=== PATIENT | female | born 1960 | race Caucasian/White ===

== ENCOUNTER 2021-03-11 20:40 | Inpatient (IN) ==
[2021-03-11] MEDS ORDERED: ONDANSETRON INJ 2 MG/ML 2 ML VIAL IV STA (20:59)
[2021-03-11] MEDS ORDERED: fentaNYL citrate 100 MCG/2 ML VIAL IV PRN (20:59)
[2021-03-11] MEDS ORDERED: SODIUM CHLORIDE 0.9% 1000ML 1,000 ML IV STA (20:59)
--- NOTE | 2021-03-11 21:10 | Emergency Department Note ---
Impression & Plan COVID-19 virus infection, Vomiting, Diarrhea, Hypomagnesemia, Hypocalcemia, Fever ED Provider Note NAME: SCOT BANDA AGE: 61 SEX: F : 1960 ARRIVES VIA: Ambulance INFORMANT: Patient, EMS personnel ED PROVIDER(S): Louie Da Silva DO CHIEF COMPLAINT: Vomiting HPI: The patient is a 61-year-old female who presented to the emergency department by ambulance for an evaluation of vomiting. The patient states that she has had ongoing symptoms over the course the last 3 days. She noticed no fever. She did notice a lot of heart palpitations. She called 911 this evening because she was having worsening symptoms and started having problems with pain in her hands. She presented to the emergency department with carpopedal spasm. The patient states that she has noticed abdominal distention nausea vomiting and diarrhea. The symptoms all began approximately 3 days ago. She states his symptoms are moderate to severe. She notices abdominal pain and abdominal distention. She also notices back pain and difficulty breathing. She is noticed her heart rate has been fast as well. She has been trying to take her outpatient medications without been able to keep them down. She has missed her blood pressure medicine over the last 48 hours. The patient states her symptoms are moderate to severe. She called 911 and arrived at the emergency department via ambulance. ROS: See above HPI for pertinent positives & negatives. A total of 10 systems reviewed and were otherwise negative. PAST MEDICAL HISTORY: See Below PAST SURGICAL HISTORY: See Below FAMILY HISTORY: See Below SOCIAL HISTORY: See Below HOME MEDICATIONS: See Below ALLERGIES: See Below VITALS: See Below PHYSICAL EXAMINATION: GENERAL: The patient is awake and alert. The patient is very anxious appearing. EYES: The conjunctivae are clear. The pupils are round and reactive. EARS, NOSE, MOUTH AND THROAT: The nose is without any evidence of any deformity. Mucous membranes are dry. NECK: The neck is nontender and supple. RESPIRATORY: Diminished breath sounds are noted throughout. Scattered rhonchi are noted throughout. CARDIOVASCULAR: Tachycardic and regular heart sounds were noted to auscultation. There is no definite murmur. GASTROINTESTINAL: The abdomen was soft and moderately distended. There is diffuse tenderness to palpation but no guarding rigidity. MUSCULOSKELETAL/EXTREMITIES: There is no evidence of gross deformity full range of motion is noted in the hips and shoulders. SKIN: Skin is warm and dry. Pedal edema was noted bilaterally. NEUROLOGIC: Patient is awake alert and oriented x3. Carpopedal spasms noted bilaterally. MEDICAL DECISION MAKING: The patient is a 61-year-old female who presented to emergency department for an evaluation of pain nausea vomiting and diarrhea. The patient was found to have a positive Covid swab. She was also febrile. The patient was treated with IV fluids as well as IV magnesium replacement. She was reevaluated multiple times. I discussed the patient's laboratory and radiographic studies with her. I also discussed her case with the on-call [facility]. They have agreed to evaluate the patient in the emergency department and disposition. Patient was doing much better on subsequent Triage Nursing notes reviewed. Prior medical records reviewed Vital Signs: reviewed and remarkable for tachycardia and hypertension. The patient was also febrile. Differential diagnosis: Etiologies such as appendicitis, diverticulitis, obstruction, inflammatory bowel disease, renal colic, PUD, biliary pathology, pancreatitis, mesenteric ischemia, aortic pathology, infections, genitourinary, UTI, perforated viscus, as well as others were entertained. ER treatment provided: See below Diagnostics interpreted by me: ECG: EKG was obtained in the emergency department. My interpretation is narrow complex tachycardia at [address] segment abnormalities were noted. Poor R wave progression was noted. This was compared to a tracing from December 15, 2014. The changes are new compared the previous tracing. A second EKG was obtained in the emergency department. My interpretation is sinus rhythm at 89 bpm. PACs were noted. Nonspecific T wave abnormalities were noted in the high lateral leads. The rate has decreased compared to the earlier tracing. Otherwise there is no specific changes noted new QRST morphology. Cardiac Monitoring: An order was placed for continuous cardiac monitoring. The monitor shows a rate of 82 bpm with sinus rhythm. Laboratory studies: As stated above and show below. Imaging studies: See below Consultation(s): I discussed this case with Dr. Pastor on-call for the [facility]. Past Med/Surg History Medical History Chest wall pain History of heart attack Hypertension Non-cardiac chest pain Precordial chest pain Sleep apnea Social History Smoking Status: Never smoker Feels Safe at Home: Yes Allergies Allergies Allergy/AdvReac Type Severity Reaction Status Date / Time CATS Allergy Unknown difficulty Uncoded 03/09/16 16:57 breathing Home Meds Home Medications Medication Instructions Recorded Confirmed Tocopheryl Acet,Dl-Alpha (Vitamin 100 inter.unit PO DAILY #0 01/20/09 E) NITROGLYCERIN (NITROSTAT) 0.4 mg UT UD PRN #0 btl 10/05/12 TUMERIC CURCUMIN 1 tab PO AMPM #0 10/05/12 CHOLECALCIFEROL (VITAMIN D3) 2,000 inter.unit PO DAILY #0 12/15/14 COENZYME Q10 (UBIDECARENONE) (CO Q 100 mg PO DAILY #0 12/15/14 10) Hctz/Losartan (Hyzaar 12.5MG/50MG) 1 tab PO DAILY #0 tab 12/15/14 KRILL OIL 3 cap PO DAILY #0 12/15/14 Levothyroxine Sodium (Synthroid) 200 mcg PO DAILY #0 12/15/14 Lorazepam 0.5 mg PO TID PRN #0 12/15/14 Metoprolol Tartrate (Lopressor) 100 mg PO BID #0 12/15/14 (Lopressor) ASCORBIC ACID (VITAMIN C) 1 tab PO BID #0 03/09/16 MAGNESIUM L-THREO 1 tab PO BID #0 03/09/16 METHYLSULFONYLMETHANE (MSM) 2 tabs PO DAILY #0 03/09/16 MULTIPLE VITAMINS W/ MINERALS 4 tabs PO AMPM #0 03/09/16 (WHOLE FOOD MULTIVITAMIN) PROBIOTIC PRODUCT (PROBIOTIC) 1 cap PO BID #0 03/09/16 VITAMIN K 150 mg PO BID #0 03/09/16 Results & Data (ED) Vital Signs Vital Signs - 24 hr 03/11/21 21:25 03/11/21 21:28 03/11/21 23:52 Temperature 39.1 C H Temperature Source Oral Pulse Rate 158 H Pulse Rate [Right Finger] 158 H 82 Pulse Rhythm [Right Finger] Regular Respiratory Rate 22 18 Blood Pressure 178/122 H Blood Pressure [Right Arm] 178/122 H 145/79 H Blood Pressure Mean 140 Blood Pressure Mean [Right Arm] 140 101 Blood Pressure Position [Right Arm] Sitting Pulse Oximetry 87 L 92 94 Oxygen Delivery Method Room Air Nasal Cannula Nasal Cannula Oxygen Flow Rate 2 4 Sepsis Recent Fever Within 48 Hours Yes Sepsis New/Unexplained Change in Mental Status No Sepsis Action Taken by Nursing Physician Notified Home Medications Current Medication List: was personally reviewed by me Laboratory Data Attestation: I reviewed the patient's lab results. Result diagrams: 03/11/21 21:20 03/11/21 21:20 Lab Results 03/11/21 03/11/21 03/11/21 Range/Units 21:20 21:20 21:20 WBC 8.61 (4.8-10.8) K/uL RBC 4.75 (4.2-5.4) M/uL Hgb 14.3 (12.0-16.0) g/dL Hct 42.8 (37-47) % MCV 90.1 (80-100) fL MCH 30.1 (25-34) pg MCHC 33.4 (32-36) g/dL RDW Std Deviation 46.2 (36.4-46.3) fL RDW Coeff of Laura 13.9 (11.5-14.5) % Plt Count 188 (130-400) K/uL MPV 10.8 H (7.4-10.4) fL Immature Gran % (Auto) 0.2 % Neut % (Auto) 86.2 % Lymph % (Auto) 8.0 % [place] % (Auto) 5.5 % Eos % (Auto) 0.0 % Baso % (Auto) 0.1 % Neut # (Auto) 7.42 H (1.4-6.5) K/uL Lymph # (Auto) 0.69 L (1.2-3.4) K/uL [place] # (Auto) 0.47 (0.11-0.59) K/uL Eos # (Auto) 0.00 (0-0.5) K/uL Baso # (Auto) 0.01 (0-0.2) K/uL Immature Gran # (Auto) 0.02 (0.00-0.02) K/uL PT Cancelled INR Cancelled APTT Cancelled PTT Ratio Cancelled VBG pH (7.36-7.41) VBG pCO2 (38-50) mmHg VBG pO2 mmHg VBG HCO3 mmol/L VBG O2 Saturation % VBG Base Excess mEq/L Barometric Pressure mm/Hg Sodium 135 L (136-145) mmol/L Potassium 3.4 L (3.5-5.1) mmol/L Chloride 98 (98-107) mmol/L Carbon Dioxide 22 (21-32) mmol/L Anion Gap 15.0 H (3-11) BUN 20 H (7-18) mg/dl Creatinine 1.02 (0.6-1.2) mg/dl Est Cr Clr Drug Dosing 74.9 ml/min Est GFR ( Amer) 67.8 ml/min Est GFR (Non-Af Amer) 58.5 ml/min BUN/Creatinine Ratio 20.0 (10-20) Glucose 135 H (70-99) mg/dl Calcium 5.5 L* (8.5-10.1) mg/dl Ionized Calcium (1.12-1.32) mmol/L Magnesium 1.6 L (1.8-2.4) mg/dl Total Bilirubin 1.1 H (0.2-1) mg/dl AST 40 H (15-37) U/L ALT 56 (12-78) Alkaline Phosphatase 64 (45-117) U/L Troponin I < 0.015 (0-0.045) ng/ml Total Protein 8.4 H (6.4-8.2) gm/dl Albumin 3.5 (3.4-5.0) gm/dl Globulin 4.8 H (2.5-4.0) gm/dl Albumin/Globulin Ratio 0.7 L (0.9-2) Lipase 140 (73-393) U/L SARS-CoV-2 (PCR) (Negative) Influenza Type A (PCR) (Neg) Influenza Type B (PCR) (Neg) RSV (RT-PCR) (Neg) 03/11/21 03/11/21 03/11/21 Range/Units 21:49 22:32 22:32 WBC (4.8-10.8) K/uL RBC (4.2-5.4) M/uL Hgb (12.0-16.0) g/dL Hct (37-47) % MCV (80-100) fL MCH (25-34) pg MCHC (32-36) g/dL RDW Std Deviation (36.4-46.3) fL RDW Coeff of Laura (11.5-14.5) % Plt Count (130-400) K/uL MPV (7.4-10.4) fL Immature Gran % (Auto) % Neut % (Auto) % Lymph % (Auto) % [place] % (Auto) % Eos % (Auto) % Baso % (Auto) % Neut # (Auto) (1.4-6.5) K/uL Lymph # (Auto) (1.2-3.4) K/uL [place] # (Auto) (0.11-0.59) K/uL Eos # (Auto) (0-0.5) K/uL Baso # (Auto) (0-0.2) K/uL Immature Gran # (Auto) (0.00-0.02) K/uL PT 11.5 INR 1.1 APTT 33.9 H PTT Ratio 1.3 VBG pH 7.44 H (7.36-7.41) VBG pCO2 36 L (38-50) mmHg VBG pO2 40 mmHg VBG HCO3 24 mmol/L VBG O2 Saturation 72.2 % VBG Base Excess -0.1 mEq/L Barometric Pressure 732.2 mm/Hg Sodium (136-145) mmol/L Potassium (3.5-5.1) mmol/L Chloride (98-107) mmol/L Carbon Dioxide (21-32) mmol/L Anion Gap (3-11) BUN (7-18) mg/dl Creatinine (0.6-1.2) mg/dl Est Cr Clr Drug Dosing ml/min Est GFR ( Amer) ml/min Est GFR (Non-Af Amer) ml/min BUN/Creatinine Ratio (10-20) Glucose (70-99) mg/dl Calcium (8.5-10.1) mg/dl Ionized Calcium (1.12-1.32) mmol/L Magnesium (1.8-2.4) mg/dl Total Bilirubin (0.2-1) mg/dl AST (15-37) U/L ALT (12-78) Alkaline Phosphatase (45-117) U/L Troponin I (0-0.045) ng/ml Total Protein (6.4-8.2) gm/dl Albumin (3.4-5.0) gm/dl Globulin (2.5-4.0) gm/dl Albumin/Globulin Ratio (0.9-2) Lipase (73-393) U/L SARS-CoV-2 (PCR) POSITIVE A* (Negative) Influenza Type A (PCR) Negative (Neg) Influenza Type B (PCR) Negative (Neg) RSV (RT-PCR) Negative (Neg) 03/11/21 Range/Units 22:32 WBC (4.8-10.8) K/uL RBC (4.2-5.4) M/uL Hgb (12.0-16.0) g/dL Hct (37-47) % MCV (80-100) fL MCH (25-34) pg MCHC (32-36) g/dL RDW Std Deviation (36.4-46.3) fL RDW Coeff of Laura (11.5-14.5) % Plt Count (130-400) K/uL MPV (7.4-10.4) fL Immature Gran % (Auto) % Neut % (Auto) % Lymph % (Auto) % [place] % (Auto) % Eos % (Auto) % Baso % (Auto) % Neut # (Auto) (1.4-6.5) K/uL Lymph # (Auto) (1.2-3.4) K/uL [place] # (Auto) (0.11-0.59) K/uL Eos # (Auto) (0-0.5) K/uL Baso # (Auto) (0-0.2) K/uL Immature Gran # (Auto) (0.00-0.02) K/uL PT INR APTT PTT Ratio VBG pH (7.36-7.41) VBG pCO2 (38-50) mmHg VBG pO2 mmHg VBG HCO3 mmol/L VBG O2 Saturation % VBG Base Excess mEq/L Barometric Pressure mm/Hg Sodium (136-145) mmol/L Potassium (3.5-5.1) mmol/L Chloride (98-107) mmol/L Carbon Dioxide (21-32) mmol/L Anion Gap (3-11) BUN (7-18) mg/dl Creatinine (0.6-1.2) mg/dl Est Cr Clr Drug Dosing ml/min Est GFR ( Amer) ml/min Est GFR (Non-Af Amer) ml/min BUN/Creatinine Ratio (10-20) Glucose (70-99) mg/dl Calcium (8.5-10.1) mg/dl Ionized Calcium 0.50 L* (1.12-1.32) mmol/L Magnesium (1.8-2.4) mg/dl Total Bilirubin (0.2-1) mg/dl AST (15-37) U/L ALT (12-78) Alkaline Phosphatase (45-117) U/L Troponin I (0-0.045) ng/ml Total Protein (6.4-8.2) gm/dl Albumin (3.4-5.0) gm/dl Globulin (2.5-4.0) gm/dl Albumin/Globulin Ratio (0.9-2) Lipase (73-393) U/L SARS-CoV-2 (PCR) (Negative) Influenza Type A (PCR) (Neg) Influenza Type B (PCR) (Neg) RSV (RT-PCR) (Neg) Administered Medications Fentanyl Citrate (Fentanyl Citrate 100 Mcg/2 Ml Vial) 50 mcg IV Q15M PRN PRN Reason: Pain Stop: 03/25/21 20:58 Last Admin: 03/11/21 21:40 Dose: 50 mcg Documented by: [id number] Magnesium Sulfate/Dextrose (Magnesium Sulfate / D5w) 1 gm in 100 mls @ 100 mls/hr IV Q1H MICHAELA Stop: 03/12/21 01:23 Last Admin: 03/11/21 23:51 Dose: 100 mls/hr Documented by: [id number] Discontinued Medications Sodium Chloride (Nss 1000ml) 1,000 mls @ 999 mls/hr IV .Q1H1M STA Stop: 03/11/21 21:59 Last Infusion: 03/11/21 22:55 Dose: 0 mls/hr Documented by: [id number] Admin: 03/11/21 21:16 Dose: 999 mls/hr Documented by: [id number] Ondansetron HCl (Ondansetron Inj 2 Mg/Ml 2 Ml Vial) 4 mg IV NOW STA Stop: 03/11/21 21:00 Last Admin: 03/11/21 21:39 Dose: 4 mg Documented by: [id number] Imaging Data Radiologist's Impression: Patient: SCOT BANDA (Female) : 56 Status: ER Date: 03/11/21 22:11 Room #: History: VOMITTING Slices: 727 Priors: Tech: Rolando Flores @ [id number] A Exams: CT ABDOMEN & PELVIS Without Contrast Contrast: Accession Numbers: [id number] Referring Physician: REFERRED SELF Preliminary Findings Only See Final Report For Complete Findings CT ABDOMEN & PELVIS Without Contrast: Comparison: CT abdomen pelvis with contrast 10/05/2010 No acute findings in the abdomen or pelvis. No evidence of bowel obstruction. Contrast noted in the colon. Multifocal opacities within the partially imaged lung bases may represent an acute infectious/inflammatory process such as aspiration pneumonitis or multifocal pneumonia. Unremarkable appendix. Bilateral renal cysts, some of which have increased in size since the prior exam. A circumscribed exophytic structure arising from the lateral cortex of the inte rpolar region of the left kidney has increased in size measuring 2.2 cm compared to 1.1 cm previously with Hounsfield units of 38. Recommend MRI or CT without and with intravenous contrast. Redemonstration of hepatomegaly and hepatic steatosis. Radiologist: oMna Germain M.D. Study ready at 22:15 and initial results transmitted at 22:49 Discharge Plan Visit Data Chief Complaint: Dehydration Stated Complaint: Illness ED Provider: Louie Da Silva Discharge Problem: COVID-19 virus infection, Vomiting, Diarrhea, Hypomagnesemia, Hypocalcemia, Fever Patient Disposition: Being Evaluated by Hospitalist Forms Stand Alone Forms: My [facility] [employer] Prescriptions Prescriptions: No Action Tocopheryl Acet,Dl-Alpha (Vitamin E) 100 INTER.UNIT capsule 100 inter.unit PO DAILY Qty: 0 RF: 0 NITROGLYCERIN (NITROSTAT) 0.4 MG SUB 0.4 mg UT UD PRN (Reason: Chest Pain) Qty: 0 RF: 0 TUMERIC CURCUMIN 1 tab PO AMPM Qty: 0 RF: 0 Hctz/Losartan (Hyzaar 12.5MG/50MG) tablet 1 tab PO DAILY Qty: 0 RF: 0 Levothyroxine Sodium (Synthroid) 200 MCG tablet 200 mcg PO DAILY Qty: 0 RF: 0 Lorazepam 0.5 MG tablet 0.5 mg PO TID PRN (Reason: Anxiety) Qty: 0 RF: 0 Metoprolol Tartrate (Lopressor) (Lopressor) 50 MG tablet 100 mg PO BID Qty: 0 RF: 0 CHOLECALCIFEROL (VITAMIN D3) 400 UNIT/ML JENNIFER 2,000 inter.unit PO DAILY Qty: 0 RF: 0 COENZYME Q10 (UBIDECARENONE) (CO Q 10) 100 MG capsule 100 mg PO DAILY Qty: 0 RF: 0 KRILL OIL 1 CAP capsule 3 cap PO DAILY Qty: 0 RF: 0 ASCORBIC ACID (VITAMIN C) 1,000 MG tablet 1 tab PO BID Qty: 0 RF: 0 MAGNESIUM L-THREO 1 tab PO BID Qty: 0 RF: 0 METHYLSULFONYLMETHANE (MSM) 500 MG capsule 2 tabs PO DAILY Qty: 0 RF: 0 VITAMIN K 150 mg PO BID Qty: 0 RF: 0 MULTIPLE VITAMINS W/ MINERALS (WHOLE FOOD MULTIVITAMIN) 1 TAB tablet 4 tabs PO AMPM Qty: 0 RF: 0 PROBIOTIC PRODUCT (PROBIOTIC) 1 CAP capsule 1 cap PO BID Qty: 0 RF: 0 Referrals Referrals: Esther Silva MD [Primary Care Provider] -
[2021-03-11 21:32] LABS: Basophils # (auto) 0.01 K/uL (0-0.2); Basophils % (auto) 0.1 %; Hematocrit (blood only) 42.8 % (37-47); Hemoglobin 14.3 g/dL (12.0-16.0); Immature Granulocytes # (auto) 0.02 K/uL (0.00-0.02); Immature Granulocytes % (auto) 0.2 %; Lymphocytes # (auto) 0.69 K/uL (1.2-3.4); Mean Corpuscular Hemoglobin 30.1 pg (25-34); Mean Corpuscular Hgb Conc 33.4 g/dL (32-36); Mean Corpuscular Volume 90.1 fL (80-100); Mean Platelet Volume 10.8 fL (7.4-10.4); Monocytes # (auto) 0.47 K/uL (0.11-0.59); Monocytes % (auto) 5.5 %; Neutrophils # (auto) 7.42 K/uL (1.4-6.5); Neutrophils % (auto) 86.2 %; Platelet Count 188 K/uL (130-400); RDW Coefficient of Variation 13.9 % (11.5-14.5); RDW Standard Deviation 46.2 fL (36.4-46.3); Red Blood Count 4.75 M/uL (4.2-5.4); White Blood Count 8.61 K/uL (4.8-10.8)
[2021-03-11 22:08] LABS: Albumin Level 3.5 gm/dl (3.4-5.0); Aspartate Aminotransferase 40 U/L (15-37); Bilirubin,Total 1.1 mg/dl (0.2-1); Chloride 98 mmol/L (98-107); Creatinine Clr Calc Pharmacy 74.9 ml/min; Est GFR (African American) 67.8 ml/min; Est GFR (Non-African American) 58.5 ml/min; Glucose 135 mg/dl (70-99); Potassium 3.4 mmol/L (3.5-5.1)
[2021-03-11 22:09] LABS: Alanine Aminotransferase 56 (12-78); Albumin Globulin Ratio 0.7 (0.9-2); Alkaline Phosphatase 64 U/L (45-117); Blood Urea Nitrogen 20 mg/dl (7-18); Calcium 5.5 mg/dl (8.5-10.1); Carbon Dioxide 22 mmol/L (21-32); Globulin 4.8 gm/dl (2.5-4.0); Lipase 140 U/L (73-393); Sodium 135 mmol/L (136-145); Total Protein 8.4 gm/dl (6.4-8.2); Troponin I < 0.015 ng/ml (0-0.045)
[2021-03-11 22:48] LABS: Base Excess VBG -0.1 mEq/L; Oxygen Saturation VBG 72.2 %; pH VBG 7.44 (7.36-7.41)
[2021-03-11 22:55] LABS: Influenza A virus by PCR Negative (Neg); Influenza B virus by PCR Negative (Neg); RSV by PCR Negative (Neg)
[2021-03-11 22:55] LABS: Magnesium 1.6 mg/dl (1.8-2.4)
[2021-03-11 22:56] LABS: SARS CoV2 RNA(COVID-19) InHosp POSITIVE (Negative)
[2021-03-11 22:58] LABS: INR 1.1 (0.9-1.1); Partial Thromboplastin Ratio 1.3; Partial Thromboplastin Time 33.9 Seconds (21.0-31.0); Prothrombin Time 11.5 Seconds (9.0-12.0)
[2021-03-11] MEDS: MAGNESIUM SULFATE / D5W 1 GM/100 ML BAG IV SCH (23:51)
[2021-03-12] MEDS: MAGNESIUM SULFATE / D5W 1 GM/100 ML BAG IV SCH (01:16)
[2021-03-12] MEDS ORDERED: REMDESIVIR 200 MG in SODIUM CHLORIDE 0.9% 210 ML IV STA (02:33)
[2021-03-12] MEDS ORDERED: POTASSIUM CHLORIDE 20 MEQ/15 ML UDC PO STA (02:34)
[2021-03-12] MEDS ORDERED: CALCIUM GLUCONATE 10% 2,000 MG in SODIUM CHLORIDE 0.9% 50 ML IV ONE ×2 (02:35→09:30)
[2021-03-12] MEDS ORDERED: POTASSIUM CHLORIDE / WTR 10 MEQ/100 ML PLCT IV STA (02:35)
[2021-03-12] MEDS ORDERED: METOPROLOL TARTRATE 1 MG/ML VIAL IV PRN (02:37)
[2021-03-12] MEDS ORDERED: ALBUTEROL HFA 8 GM INHALER INH PRN (04:25)
[2021-03-12] MEDS ORDERED: hydrOXYzine HCl 25 MG TAB PO PRN (04:25)
[2021-03-12] MEDS ORDERED: ONDANSETRON INJ 2 MG/ML 2 ML VIAL IV PRN (04:25)
[2021-03-12] MEDS ORDERED: NITROGLYCERIN SL 0.4 MG/TAB TAB SL PRN (04:25)
[2021-03-12] MEDS: SODIUM CHLORIDE 0.9% 10ML FLUSH IV SCH ×2 (05:32→22:18)
[2021-03-12] MEDS: D5W AND NSS 1,000 ML IV SCH ×3 (05:32→22:18)
--- NOTE | 2021-03-12 05:32 | History and Physical Report ---
DATE OF ADMISSION: 03/12/2021. CHIEF COMPLAINT: Dehydration. HISTORY OF PRESENT ILLNESS: This is a 61-year-old female with past medical history significant for hypothyroidism, allergic rhinitis, sleep apnea, hypertension, GERD, duodenitis, morbid obesity, allergic conjunctivitis, history of papillary thyroid cancer, status post thyroidectomy, history of coronary artery disease, status post angioplasty. Presents with nausea, vomiting and diarrhea. The patient says her symptoms started about 3 days ago. She developed nausea, vomiting and diarrhea and also feeling weak and tired and she was quaranting at home, but today she felt numbness in the fingers. She had episodes of low calcium in the past because of her thyroid surgery, so she came to the ER and found to be COVID positive and also spiking temperature and her potassium is 3.4, calcium 5.5, and magnesium 1.6. CT of the abdomen and pelvis preliminary report, she has multifocal pneumonia, otherwise left kidney has increased in size. Received fluids and pain medication and currently feeling better. Denies any headache, no dizziness, no blurred visions, no runny nose. Has some mild sore throat, no cough, no chest pain, no shortness of breath. Abdominal pain is better now. Normal bladder movements. No swelling in the legs. Lives at home with her . Not COVID vaccinated. ALLERGIES: CATS. PAST MEDICAL HISTORY: As mentioned above. PAST SURGICAL HISTORY: Status post thyroidectomy, colonoscopy with biopsy, EGD, coronary balloon angioplasty in 2004, removal of the right ovary. MEDICATIONS: The patient, as per the EPIC, is on metoprolol tartrate 50 mg p.o. b.i.d., Synthroid 200 mcg p.o. daily, hydroxyzine 25 mg p.o. q. 6 hours p.r.n., losartan/hydrochlorothiazide 50/12.5 mg p.o. daily, oxygen gas with CPAP at night time, nitroglycerin 0.4 mg sublingual p.r.n., vitamin C 1 gram p.o. daily, vitamin D 1000 units p.o. daily. FAMILY HISTORY: Significant for father had heart disorder, mother has hypertension. SOCIAL HISTORY: . Quit smoking many years ago. Alcohol occasionally. No drug use. REVIEW OF SYSTEMS: As per HPI. Rest of the review of systems is negative. PHYSICAL EXAMINATION: GENERAL: The patient is morbidly obese, currently not in acute distress. VITAL SIGNS: Temperature 39.1, pulse 82, respiratory rate 18, blood pressure 145/79, oxygen 94% on 4 liters. HEENT: Pupils equal, round and reactive to light. Oral mucosa dry. NECK: No JVD. No neck masses. CARDIOVASCULAR: S1 and S2 heard. Regular rate and rhythm. No murmur, no gallop. RESPIRATORY SYSTEM: Normal AP diameter. No accessory muscle use. No wheezing, no crackles. ABDOMEN: Soft, bowel sounds present, nontender, no distention. CENTRAL NERVOUS SYSTEM: Cranial nerves II through XII are grossly intact, nonfocal. EXTREMITIES: No edema, no erythema. LABORATORY DATA: WBC 8.6, hemoglobin 14.3, hematocrit 42.8, platelets 188. PT 11.5, INR 1.1, APTT 33.9. Venous blood gas, pH of 7.44, pO2 of 40, bicarbonate 24. Sodium 135, potassium 3.4, chloride 98, bicarbonate 22, BUN 20, creatinine 1.02, serum glucose 135, calcium 5.5, magnesium 1.6, total bilirubin 1.1, AST 40, ALT 56, alkaline phosphatase 64. Troponin I less than 0.015. Lipase 140. SARS-CoV-2 PCR positive. Influenza A and B PCR negative. RSV PCR negative. IMAGING DATA: CT of the abdomen and pelvis preliminary report shows multifocal pneumonia and also increased left kidney disease. EKG: Showed tachycardia at a rate of 158. ST depression in anterior inferior leads. ASSESSMENT AND PLAN: This is a 61-year-old female who presents with nausea/vomiting and diarrhea and electrolyte abnormalities and COVID. 1. COVID-19 with nausea, vomiting and diarrhea, causing electrolyte abnormalities and also hypoxia requiring oxygen. Will do a CTA chest to rule out any pulmonary embolism and has multifocal pneumonia in the CT of abdomen and pelvis. Meets criteria for remdesivir and steroids, which will be started and follow the remdesivir labs. Follow CRP levels. Closely monitor in the tele floor. 2. Hypocalcemia, hypomagnesemia, and hypokalemia, will replace. The patient says she gets low calcium since she had thyroid surgery. Will follow the repeat labs. Will check vitamin D levels. 3. Morbid obesity: Needs counseling. 4. Sleep apnea: CPAP at bedtime with oxygen supplementation. 5. Hypertension: Continue her metoprolol tartrate. Hold losartan and hydrochlorothiazide for now. Monitor the blood pressure. 6.SVT initially when she came in, but it got resolved. Will monitor. Continue metoprolol. Will place on IV Lopressor p.r.n. 7. History of papillary thyroid cancer: Status post thyroidectomy. 8. History of coronary artery disease: Status post angioplasty and beta zac. Currently not on aspirin. Not On statin. 8. Deep venous thrombosis prophylaxis: Will place on Lovenox. DISPOSITION: Closely monitor in the tele floor. Level 1 full code. Expect to discharge home and follow with family doctor. Job ID: [id number] [facility]ITALHan
[2021-03-12] MEDS ORDERED: OPTIRAY 320 125ml IV ONE (05:34)
[2021-03-12 07:25] LABS: Basophils # (auto) 0.02 K/uL (0-0.2); Basophils % (auto) 0.2 %; Hematocrit (blood only) 39.3 % (37-47); Hemoglobin 12.9 g/dL (12.0-16.0); Immature Granulocytes # (auto) 0.02 K/uL (0.00-0.02); Immature Granulocytes % (auto) 0.2 %; Lymphocytes # (auto) 0.81 K/uL (1.2-3.4); Lymphocytes % (auto) 9.6 %; Mean Corpuscular Hemoglobin 29.6 pg (25-34); Mean Corpuscular Hgb Conc 32.8 g/dL (32-36); Mean Corpuscular Volume 90.1 fL (80-100); Mean Platelet Volume 10.8 fL (7.4-10.4); Monocytes # (auto) 0.54 K/uL (0.11-0.59); Monocytes % (auto) 6.4 %; Neutrophils # (auto) 7.06 K/uL (1.4-6.5); Neutrophils % (auto) 83.6 %; Platelet Count 186 K/uL (130-400); RDW Standard Deviation 46.5 fL (36.4-46.3); Red Blood Count 4.36 M/uL (4.2-5.4); White Blood Count 8.45 K/uL (4.8-10.8)
[2021-03-12] MEDS: LEVOTHYROXINE SODIUM 200 MCG TABLET PO SCH (07:36)
--- NOTE | 2021-03-12 07:43 | CT Scan Report ---
CT abd pelvis wo con CLINICAL HISTORY: vomiting COMPARISON STUDY: 10/05/2010 CT DOSE: 1836.68 mGy.cm TECHNIQUE: Standard CT of the Abdomen and Pelvis was performed without IV contrast. The patient did not receive oral contrast. A dose lowering technique was utilized adhering to the principles of LEIDY Guerrero. FINDINGS: Lung base: Patchy interstitial and alveolar opacities are present at the lung bases bilaterally. The findings are most characteristic of a viral type pneumonitis. Covid 19 pneumonia should be excluded. Abdominal cavity: There is no evidence for abdominal mass, adenopathy or ascites. Liver: The liver is homogeneous with increased attenuation on these limited noncontrast images..The f indings are again characteristic of fatty infiltration. Spleen: The spleen is homogeneous in attenuation on these limited noncontrast images. Pancreas: The pancreas is homogeneous in attenuation on these limited noncontrast images. Gall Bladder: The gallbladder is well distended with no evidence for cholelithiasis, wall thickening or pericholecystic edema.. Adrenal glands: The adrenal glands are normal in size and attenuation on these limited noncontrast im ages. Kidneys: Compared to the previous examination, there has been interval enlargement of a exophytic mas s projecting from the left kidney now measuring 2.3 x 1.5 cm. It is possible that this represents a h emorrhagic cyst. Follow-up ultrasound is recommended for further evaluation. There is also evidence f or an exophytic cyst present involving the mid body of the right kidney measuring approximately 2.1 x 1.4 cm. This is also developed since the previous study. There is no evidence for renal calculus or hydronephrosis bilaterally. Bowel: There is evidence for small sliding-type hiatal hernia. The bowel loops are normally placed wi thin the abdomen and pelvis without evidence for dilatation or obstruction. There is no evidence for mass lesion. There are no inflammatory changes present. There is no evidence for free air. There is a normal appendix in the right lower quadrant. Bladder: There is no evidence for focal bladder wall thickening, calculus or diverticulum. : There is no evidence for pelvic mass or adenopathy. Vasculature: There is no evidence for focal aneurysmal dilatation of the abdominal aorta. Osseous structures: There is no acute osseous pathology. Degenerative changes are seen within the spi ne. IMPRESSION: 1. Patchy interstitial and alveolar opacities at the lung bases characteristic of a viral type pneumo nitis and probable Covid pneumonia. 2. No acute intra-abdominal or pelvic abnormality on these limited noncontrast images. 3. However, there has been interval development of a exophytic mass involving the left kidney with in creased attenuation. The differential includes a hemorrhagic cyst versus a neoplastic process. Follow -up ultrasound is recommended for further evaluation. 4. Additional nonacute findings are delineated above. ACT 112: Negative or not required by law. Electronically signed by: Pedro Luis Coleman M.D. 03/12/2021 7:42 AM
[2021-03-12 07:51] LABS: Albumin Level 2.9 gm/dl (3.4-5.0); BUN Creatinine Ratio 19.7 (10-20); Bilirubin Direct 0.3 mg/dl (0-0.2); Bilirubin,Total 0.9 mg/dl (0.2-1); C Reactive Protein 15.2 mg/dl (0-0.29); Calcium 5.2 mg/dl (8.5-10.1); Est GFR (African American) 77.8 ml/min; Est GFR (Non-African American) 67.1 ml/min; Magnesium 2.2 mg/dl (1.8-2.4); Potassium 3.3 mmol/L (3.5-5.1); Total Protein 7.4 gm/dl (6.4-8.2); Troponin I 0.048 ng/ml (0-0.045)
--- NOTE | 2021-03-12 07:54 | XRay Report ---
XR chest 1V portable CLINICAL HISTORY: Cough. COMPARISON STUDY: Chest radiograph March 09, 2016. FINDINGS: Exam is compromised by motion artifact. No pneumothorax or pleural effusion is noted. Moder ate cardiomegaly is noted. Moderate multifocal airspace opacities within the lungs are present. IMPRESSION: 1. Moderate multifocal airspace opacities within the lungs consistent with viral pneumonia. Radiograp hic follow-up to ensure resolution is recommended. 2. Cardiomegaly. ACT 112: Negative or not required by law. Electronically signed by: Vikram Thayer M.D. 03/12/2021 7:53 AM
[2021-03-12] MEDS: ACETAMINOPHEN 325 MG TAB PO PRN (08:00)
--- NOTE | 2021-03-12 08:27 | CT Scan Report ---
CT angio chest PE protocol CLINICAL HISTORY: Shortness of breath and difficulty breathing. Covid positive. Evaluate for pulmonar y embolus COMPARISON STUDY: Portable chest from 03/11/2021 CT DOSE: 1099.50 mGy.cm TECHNIQUE: CT Angio of the chest was performed.followed by image post processing with coronal, and s agittal MIP reformats. Contrast Volume: Optiray 320, 120 ml FINDINGS: Vasculature: There is homogeneous perfusion of the pulmonary vasculature bilaterally. No intraluminal filling defects or evidence for pulmonary embolus is seen. Airway: The airway is clear. No endobronchial lesion is identified. Lungs: Extensive groundglass opacities are present throughout both lungs characteristic of a viral ty pe pneumonitis and Covid 19 pneumonia. The lungs are otherwise clear of confluent alveolar opacities, air bronchograms or pulmonary nodules. Pleura: There is no evidence for pleural effusion. There is no evidence for pneumothorax. Mediastinum: There is no evidence for pathologic adenopathy. There is mild cardiomegaly. The thoracic aorta is within normal limits. There is no evidence for pericardial effusion. Upper abdomen:The adrenal glands are normal bilaterally. There is hepatomegaly with diffuse fatty inf iltration of the liver. There is associated splenomegaly. There is also a small sliding-type hiatal h ernia. Osseous structures: There is no acute osseous pathology. Impression: 1. No CTA evidence for pulmonary embolus. 2. Extensive groundglass opacities are present throughout both lungs characteristic of a viral type p neumonitis and Covid 19 pneumonia. 3. Hepatomegaly with diffuse fatty infiltration of liver. 4. Splenomegaly. 5. Cardiomegaly. ACT 112: Negative or not required by law. Electronically signed by: Pedro Luis Coleman M.D. 03/12/2021 8:25 AM
[2021-03-12] MEDS: ASCORBIC ACID 500 MG TAB PO SCH (09:00)
[2021-03-12] MEDS: METOPROLOL TARTRATE 50 MG TAB PO SCH ×2 (09:00→20:39)
[2021-03-12] MEDS: CHOLECALCIFEROL 1,000 UNITS 25 MCG TAB PO SCH (09:00)
[2021-03-12] MEDS: ENOXAPARIN INJ 40 MG/0.4 ML SYR SQ SCH ×2 (09:01→20:43)
[2021-03-12] MEDS: dexAMETHasone 6 MG in SYRINGE 0 ML IV SCH (09:01)
[2021-03-12] MEDS: FLUTICASONE FUROATE 100MCG 14 PUFFS/INHALER INH SCH (09:03)
[2021-03-12] MEDS: CALCIUM CARBONATE 1250MG TAB PO SCH ×2 (10:28→20:39)
[2021-03-12] MEDS: POTASSIUM CHLORIDE / WTR 10 MEQ/100 ML PLCT IV SCH ×4 (10:38→13:56)
[2021-03-12] MEDS ORDERED: CALCIUM GLUCONATE 10% 3,000 MG in 0.9 % SODIUM CHLORIDE 100 ML IV ONE (11:00)
--- NOTE | 2021-03-12 13:48 | Consultation Report ---
NEPHROLOGY CONSULTATION NOTE DATE OF CONSULTATION: 03/12/2021. REASON FOR CONSULTATION: Severe electrolyte imbalance. HISTORY OF PRESENT ILLNESS: The patient is a 61-year-old female who presented to the hospital last night because of worsening nausea, vomiting, diarrhea, extreme weakness, but yesterday she also had numbness in her fingers. She was found to have very low calcium of 5.5 and was also found to be COVID positive with multifocal pneumonia. She has a history of hypocalcemia in the past also, after her thyroid surgery. She also had a slightly low sodium and potassium, but it was mainly the calcium, which was extremely low. Magnesium was normal. Kidney function was normal. Since admission, she has received potassium supplement as well as IV fluid and IV calcium as well as oral calcium. She is also getting Remdesivir and dexamethasone for the COVID-19 pneumonia. For the last 3 to 4 days, she has not been able to eat much and has been eating mainly just fruits. Did have some fever in the Emergency Department. She is starting to feel somewhat better after some IV calcium and IV fluids. She is requiring oxygen at 4 liters per minute by nasal cannula. She has not been vaccinated for COVID. ALLERGIES: CATS. PAST MEDICAL AND SURGICAL HISTORY: Includes hypothyroidism, allergic rhinitis, sleep apnea, hypertension, GERD, morbid obesity, allergic conjunctivitis, history of papillary thyroid cancer, status post thyroidectomy and developed post-surgery hypocalcemia, coronary artery disease, status post angioplasty, colonoscopy with biopsy, EGD, removal of the right ovary. MEDICATIONS: At home includes metoprolol, Synthroid, hydroxyzine, losartan/hydrochlorothiazide 50/12.5 daily, oxygen with CPAP at nighttime, vitamin D 1000 units daily. FAMILY HISTORY: Significant for heart disease in father, mother with hypertension. No renal disease or dialysis. SOCIAL HISTORY: , quit smoking many years ago. Occasional alcohol, no drugs. 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 REVIEW OF SYSTEMS: As detailed in HPI; unless stated otherwise, 12 systems reviewed and negative. Positive review of systems includes nausea, vomiting, diarrhea, poor appetite, weakness, fever, some cough and shortness of breath. Otherwise, 12 systems reviewed and negative. PHYSICAL EXAMINATION: GENERAL: A middle-aged white female who is somewhat obese. She is in slight respiratory distress. VITAL SIGNS: She is requiring 4 liters oxygen and oxygenation is 95%, temperature 37 degrees Celsius, blood pressure 156/86, pulse rate 62 per minute. HEENT: Mucous membranes are moist. NECK: Supple. No jugular venous distention. CHEST: Bilateral somewhat diminished breath sounds with occasional rhonchi. CARDIOVASCULAR: S1 and S2, regular. ABDOMEN: Soft, nontender, obese. EXTREMITIES: Show no edema. NEUROLOGIC: She is awake, alert and oriented. No focal deficit noted. Normal speech. Moving all 4 extremities. LABORATORY TEST: Blood work shows sodium 134, potassium 3.3, calcium was 5.2. Ionized calcium was 0.5, albumin is 2.9, magnesium is normal at 2.2. CRP is very elevated at 15.2. Troponin is slightly positive. Vitamin D level 60. CT chest and CT abdomen shows no pulmonary embolism, ground-glass opacities bilaterally consistent with COVID-19 pneumonia. Hepatomegaly with diffuse fatty infiltration of liver, splenomegaly, cardiomegaly. CT abdomen also shows exophytic mass projecting from the left kidney measuring 2.3 cm, possible hemorrhagic cyst versus a neoplastic process. ASSESSMENT AND PLAN: A 61-year-old female admitted with four days symptoms consistent with GI manifestation of COVID infection as well as COVID-19 pneumonia, now associated with severe electrolyte imbalance, especially hypocalcemia. Electrolyte disorder. She has severe hypocalcemia and was low enough to cause neurological symptoms with numbness of fingers. Calcium was extremely low at 5.2. The ionized was 0.5. Wiith some IV calcium infusion, it went up slightly to 5.5 and an ionized at 0.55. She needs a lot more calcium than what she has received so far. I wrote for another 3 grams of IV calcium. Continue the oral calcium supplement also. We will do serial BMP mainly to check ionized calcium level and will continue to replace it and try to get it normal. She also has mild hyponatremia and hypokalemia, which should get better somewhat easier. No further workup is needed for hypocalcemia at this time, other than to check PTH level to rule out underlying hypoparathyroidism also. Job ID: [id number] [facility]
[2021-03-12] MEDS ORDERED: CALCIUM GLUCONATE 10% 3,000 MG in 0.9 % SODIUM CHLORIDE 100 ML IV STA (15:40)
--- NOTE | 2021-03-12 17:49 | Hospitalist Progress Note ---
Date of Service March 12, 2021 Assessment & Plan (1) COVID-19 virus infection: Plan: ASSESSMENT AND PLAN: This is a 61-year-old female who presents with nausea/vomiting and diarrhea and electrolyte abnormalities and COVID. 1. Acute hypoxic respiratory failure, COVID-19 pneumonia Currently on 4 L of oxygen by nasal cannula CT chest angio: No PE Continue dexamethasone, remdesivir day #1 Self proning, incentive spirometry, flutter valve Mucinex Lovenox for DVT prophylaxis With nausea, vomiting and diarrhea, causing electrolyte abnormalities --Resolving --Replete potassium, calcium, magnesium 2. Hypocalcemia, hypomagnesemia, and hypokalemia, will replace. The patient says she gets low calcium since she had thyroid surgery. --Calcium repletion underway Paresthesias weakness improving --Repeat calcium tonight Customer Contact Sales Associate consulted, appreciate recommendations PTH low, possible component of hyperparathyroidism status post surgery 3. Morbid obesity: Needs counseling. 4. Sleep apnea: CPAP at bedtime with oxygen supplementation. 5. Hypertension: Continue her metoprolol tartrate. --Continue losartan 6.SVT initially when she came in, but it got resolved. -- Continue metoprolol. Will place on IV Lopressor p.r.n. 7. History of papillary thyroid cancer: Status post thyroidectomy. 8. History of coronary artery disease: Status post angioplasty and beta zac. Currently not on aspirin. Not On statin. 8. Deep venous thrombosis prophylaxis: Will place on Lovenox. plan of care discussed with patient in detail and at length all questions answered she is understanding, agreeable, comfortable with the plan of care Admission and Anticipated Discharge Date Admission Date: March 12, 2021 Subjective Follow-up for COVID-19 pneumonia, acute hypoxic respiratory failure, etc. Seen sitting up in bed, comfortable, not in distress, on 4 L of oxygen via nasal cannula States that she feels improved compared to admission Has occasional dry cough, denies chest pain, palpitations, dizziness Nausea and vomiting resolved, no diarrhea today No abdominal pain Paresthesias of the upper extremities also improved No leg pain No other symptoms Review of Systems Review of Systems: all noted and negative except for above Physical Exam Physical Exam: General- oriented x 3, not in distress, speaks in sentences wi th no effort or accessory muscle use Head- atraumatic Eyes- PERRL, EOMI, anicteric ENT- oropharynx clear Neck- supple, no JVD, no adenopathy, no thyromegaly; carotids +2/2, no bruits appreciated Lungs-crackles bilateral bases, no wheezing Heart- normal rate, regular rhythm; no murmur, no gallop, no rub appreciated Abdomen-hyperactive bowel sounds, nondistended, soft, nontender, no masses or hepatosplenomegaly Extremities- no pretibial edema, no calf tenderness; peripheral pulses intact Neuro- alert, oriented x 3; CN 2-12 grossly intact; motor 5/5 bilaterally;sensation 100% on all extremities; no other gross focal neurologic deficits Skin- warm & dry Results & Data Results & Data ([facility]) Vital Signs (Past 12 Hours) Vital Signs Temp Pulse Resp BP Pulse Ox 03/12/21 16:15 94 03/12/21 13:53 37.9 C H 03/12/21 13:47 66 20 156/87 H 96 03/12/21 11:44 36.9 C 62 20 156/86 H 95 03/12/21 08:30 37.9 C H 03/12/21 07:43 38.1 C H 69 22 160/79 H 96 all noted and reviewed including below
[2021-03-12] MEDS: guaiFENesin 600 MG TABCR PO SCH (20:39)
[2021-03-12] MEDS: REMDESIVIR 100 MG in SODIUM CHLORIDE 0.9% 230 ML IV SCH (20:43)
[2021-03-13] MEDS ORDERED: CALCIUM GLUCONATE 10% 2,000 MG in SODIUM CHLORIDE 0.9% 50 ML IV ONE (02:00)
[2021-03-13 02:03] LABS: Appearance Urine Clear (Clear); Bacteria Urine Automated Negative (Negative); Bilirubin Urine Negative (Negative); Blood Urine Negative (Negative); Color Urine Dark Yellow; Epithelial Cell Urine Auto 20-30 /lpf (0-5); Glucose Urine UA Negative (Negative); Ketones Urine Trace (Negative); Leukocyte Esterase Urine Negative (Negative); Nitrite Urine Negative (Negative); Protein Urine 2+ (Negative); RBC Urine Automated 0-4 /hpf (0-4); Specific Gravity Urine 1.039 (1.000-1.030); Urobilinogen Urine Negative (Negative); pH Urine 5.5 (4.5-7.5)
[2021-03-13] MEDS: D5W AND NSS 1,000 ML IV SCH (06:17)
[2021-03-13 06:25] LABS: Albumin Globulin Ratio 0.7 (0.9-2); Albumin Level 2.8 gm/dl (3.4-5.0); Bilirubin,Total 0.7 mg/dl (0.2-1); Calcium 7.1 mg/dl (8.5-10.1); Creatinine Clr Calc Pharmacy 87.9 ml/min; Est GFR (African American) 82.2 ml/min; Est GFR (Non-African American) 70.9 ml/min; Globulin 4.3 gm/dl (2.5-4.0); Total Protein 7.1 gm/dl (6.4-8.2)
--- NOTE | 2021-03-13 07:27 | Electrocardiogram Report ---
Test Reason : Blood Pressure : / mmHG Vent. Rate : 158 BPM Atrial Rate : 153 BPM P-R Int : 000 ms QRS Dur : 084 ms QT Int : 312 ms P-R-T Axes : 000 -13 088 degrees QTc Int : 505 ms Poor data quality, interpretation may be adversely affected Supraventricular tachycardia Poor R wave progression, consider anterior [place] vs. lead placement vs. LVH Nonspecific T wave abnormality Abnormal ECG When compared with ECG of 09-MAR-2016 15:55, Vent. rate has increased BY 90 BPM Supraventricular tachycardia has replaced Sinus rhythm Confirmed by Jeovany Burkett ([id number]) on 03/13/2021 7:27:10 AM Referred By: REFERRED SELF Confirmed By:Jeovany Burkett
--- NOTE | 2021-03-13 07:34 | Electrocardiogram Report ---
Test Reason : Blood Pressure : / mmHG Vent. Rate : 089 BPM Atrial Rate : 089 BPM P-R Int : 180 ms QRS Dur : 096 ms QT Int : 418 ms P-R-T Axes : 049 -27 076 degrees QTc Int : 508 ms Sinus rhythm with Premature atrial complexes Anterior infarct (cited on or before 13-DEC-2008) Possible Inferior infarct Abnormal ECG When compared with ECG of 11-MAR-2021 21:00, Premature atrial complexes are now Present Sinus rhythm has replaced Supraventricular tachycardia Vent. rate has decreased BY 69 BPM Confirmed by Jeovany Burkett ([id number]) on 03/13/2021 7:33:39 AM Referred By: REFERRED SELF Confirmed By:Jeovany Burkett
--- NOTE | 2021-03-13 08:24 | Electrocardiogram Report ---
Test Reason : Blood Pressure : / mmHG Vent. Rate : 064 BPM Atrial Rate : 064 BPM P-R Int : 190 ms QRS Dur : 096 ms QT Int : 436 ms P-R-T Axes : 040 -20 078 degrees QTc Int : 449 ms Poor data quality, interpretation may be adversely affected Normal sinus rhythm Poor R wave progression, consider anterior PR vs. lead placement vs. LVH Nonspecific T wave abnormality Abnormal ECG When compared with ECG of 11-MAR-2021 22:23, Premature atrial complexes are no longer Present Confirmed by Jeovany Burkett ([id number]) on 03/13/2021 8:23:37 AM Referred By: REFERRED SELF Confirmed By:Jeovany Burkett
[2021-03-13] MEDS ORDERED: CALCIUM GLUCONATE 10% 3,000 MG in 0.9 % SODIUM CHLORIDE 100 ML IV ONE ×2 (08:45→13:30)
[2021-03-13] MEDS: CHOLECALCIFEROL 1,000 UNITS 25 MCG TAB PO SCH (08:46)
[2021-03-13] MEDS: ASCORBIC ACID 500 MG TAB PO SCH (08:46)
[2021-03-13] MEDS: LEVOTHYROXINE SODIUM 200 MCG TABLET PO SCH (08:47)
[2021-03-13] MEDS: dexAMETHasone 6 MG in SYRINGE 0 ML IV SCH (08:47)
[2021-03-13] MEDS: CALCIUM CARBONATE 1250MG TAB PO SCH ×3 (08:47→19:52)
[2021-03-13] MEDS: METOPROLOL TARTRATE 50 MG TAB PO SCH ×2 (08:47→19:55)
[2021-03-13] MEDS: ENOXAPARIN INJ 40 MG/0.4 ML SYR SQ SCH ×2 (08:47→19:52)
[2021-03-13] MEDS: FLUTICASONE FUROATE 100MCG 14 PUFFS/INHALER INH SCH (08:49)
[2021-03-13] MEDS: guaiFENesin 600 MG TABCR PO SCH ×2 (09:12→19:54)
--- NOTE | 2021-03-13 12:59 | Nephrology Progress Note ---
Date of Service March 13, 2021 Assessment & Plan Admission and Anticipated Discharge Date Admission Date: March 12, 2021 Subjective S---No new issues. Ca++ stil very low despite very high dose supplement. PHYSICAL EXAMINATION: GENERAL: A middle-aged white female who is somewhat obese. She is in slight respiratory distress. HEENT: Mucous membranes are moist. NECK: Supple. No jugular venous distention. CHEST: Bilateral somewhat diminished breath sounds with occasional rhonchi. CARDIOVASCULAR: S1 and S2, regular. ABDOMEN: Soft, nontender, obese. EXTREMITIES: Show no edema. NEUROLOGIC: She is awake, alert and oriented. No focal deficit noted. Normal speech. Moving all 4 extremities. LABORATORY TEST: Ionized ca++ still low at 0.87. PTH is very low ASSESSMENT AND PLAN: A 61-year-old female admitted with four days symptoms consistent with GI manifestation of COVID infection as well as COVID-19 pneumonia, now associated with severe electrolyte imbalance, especially hypocalcemia. Electrolyte disorder. She has severe hypocalcemia and was low enough to cause neurological symptoms with numbness of fingers. PTH is very low in the setting of Very low Ca++. given her h/o Severe Hypocalcemia after the thyroid surgery I believe the Dx is Hypoparathyroidism almost certainly from Inadvertent removal removal of parathyroid Gland during the thyroid surgery. Continue iv ca++ supplement. Will raise PO supplement. raise VIt D Daily labs. . Results & Data ([facility]) Vital Signs (Past 12 Hours) Vital Signs Temp Pulse Pulse Resp BP Pulse Ox Pulse Ox 03/13/21 12:28 36.7 C 52 L 22 181/84 H 98 03/13/21 09:15 59 L 20 140/67 97 03/13/21 04:25 96 03/13/21 01:12 47 L 24 96
[2021-03-13] MEDS: LORazepam 0.5 MG TAB PO PRN (14:58)
[2021-03-13] MEDS: hydrALAZINE HCL 20 MG/ML VIAL IV PRN (14:58)
--- NOTE | 2021-03-13 16:17 | Hospitalist Progress Note ---
Date of Service March 13, 2021 Assessment & Plan (1) COVID-19 virus infection: Plan: ASSESSMENT AND PLAN: This is a 61-year-old female who presents with nausea/vomiting and diarrhea and electrolyte abnormalities and COVID. 1. Acute hypoxic respiratory failure, COVID-19 pneumonia remains on 4 L of oxygen by nasal cannula CT chest angio: No PE Continue dexamethasone, remdesivir day #2 Self proning, incentive spirometry, flutter valve Mucinex Lovenox for DVT prophylaxis With nausea, vomiting and diarrhea, causing electrolyte abnormalities -- K and Mg Normal -- Ca replacement per below --Replete potassium, calcium, magnesium 2. Hypoparathyroidism s/p Thyroid surgery -- PTH low --Calcium being repleted -- on Oscal TID IV Ca intermittently --Repeat calcium 1600 Certified Pesticide Applicator consulted, appreciate recommendations 3. Morbid obesity: Needs counseling. 4. Sleep apnea: CPAP at bedtime with oxygen supplementation. 5. Hypertension: Continue her metoprolol tartrate. --Continue losartan 6.SVT initially when she came in, but it got resolved. -- Continue metoprolol. IV Lopressor p.r.n. 7. History of papillary thyroid cancer: Status post thyroidectomy. 8. History of coronary artery disease: Status post angioplasty and beta b locker. Currently not on aspirin. Not On statin. 8. Deep venous thrombosis prophylaxis: Will place on Lovenox. plan of care discussed with patient in detail and at length all questions answered she is understanding, agreeable, comfortable with the plan of care Admission and Anticipated Discharge Date Admission Date: March 12, 2021 Subjective ff up for acute hypoxic respiratory failure, coivd 19 pneumonia, etc seen resting in bed, comfortable on 4 L NC states breathing is ok no chest pain, palpitations, nausea/vomiting, leg pain reports feeling flushed today no other symptoms Review of Systems Review of Systems: all noted and negative except for above Physical Exam Physical Exam: General- oriented x 3, not in distress, speaks in sentences with no effort or accessory muscle use Eyes- anicteric Neck- no JVD Lungs- mild crackles at the bases, no wheezing Heart- normal rate, regular rhythm; no murmurs Abdomen- normal bowel sounds, nondistended, soft, nontender Extremities- no pretibial edema, no calf tenderness Neuro- alert, oriented x 3; no gross focal neurologic deficits Skin- warm & dry Results & Data Results & Data ([facility]) Vital Signs (Past 12 Hours) Vital Signs Temp Pulse Resp BP Pulse Ox Pulse Ox 03/13/21 12:28 36.7 C 52 L 22 181/84 H 98 03/13/21 09:15 59 L 20 140/67 97 03/13/21 04:25 96 all noted and reviewed including below
[2021-03-13] MEDS: SODIUM CHLORIDE 0.9% 10ML FLUSH IV SCH (19:50)
[2021-03-13] MEDS: REMDESIVIR 100 MG in SODIUM CHLORIDE 0.9% 230 ML IV SCH (19:50)
[2021-03-14] MEDS: LEVOTHYROXINE SODIUM 200 MCG TABLET PO SCH (06:00)
[2021-03-14] MEDS: FLUTICASONE FUROATE 100MCG 14 PUFFS/INHALER INH SCH (08:28)
[2021-03-14] MEDS: ASCORBIC ACID 500 MG TAB PO SCH (08:30)
[2021-03-14] MEDS: CALCIUM CARBONATE 1250MG TAB PO SCH ×3 (08:31→20:40)
[2021-03-14] MEDS: CHOLECALCIFEROL 1,000 UNITS 25 MCG TAB PO SCH (08:32)
[2021-03-14] MEDS: dexAMETHasone 6 MG in SYRINGE 0 ML IV SCH (08:32)
[2021-03-14] MEDS: guaiFENesin 600 MG TABCR PO SCH ×2 (08:33→20:41)
[2021-03-14] MEDS: ENOXAPARIN INJ 40 MG/0.4 ML SYR SQ SCH ×2 (08:33→20:40)
[2021-03-14 08:50] LABS: Albumin Globulin Ratio 0.7 (0.9-2); Albumin Level 2.8 gm/dl (3.4-5.0); BUN Creatinine Ratio 30.7 (10-20); Bilirubin,Total 0.7 mg/dl (0.2-1); Calcium 8.1 mg/dl (8.5-10.1); Est GFR (African American) 76.8 ml/min; Est GFR (Non-African American) 66.3 ml/min; Globulin 4.1 gm/dl (2.5-4.0); Phosphorus 6.6 mg/dl (2.5-4.9); Total Protein 6.9 gm/dl (6.4-8.2)
[2021-03-14] MEDS ORDERED: lisinopril 10 MG TAB PO SCH (09:00)
--- NOTE | 2021-03-14 10:43 | Electrocardiogram Report ---
Test Reason : Blood Pressure : / mmHG Vent. Rate : 042 BPM Atrial Rate : 042 BPM P-R Int : 196 ms QRS Dur : 080 ms QT Int : 536 ms P-R-T Axes : 031 -06 066 degrees QTc Int : 447 ms Marked sinus bradycardia Low voltage QRS Abnormal ECG When compared with ECG of 12-MAR-2021 10:06, Vent. rate has decreased BY 22 BPM Questionable change in initial forces of Anterior leads T wave inversion now evident in Anterior leads Confirmed by Louie Fam ([id number]) on 03/14/2021 10:42:34 AM Referred By: REFERRED SELF Confirmed By:Louie Fam
--- NOTE | 2021-03-14 10:46 | Electrocardiogram Report ---
Test Reason : Blood Pressure : / mmHG Vent. Rate : 056 BPM Atrial Rate : 056 BPM P-R Int : 186 ms QRS Dur : 104 ms QT Int : 428 ms P-R-T Axes : 070 -06 089 degrees QTc Int : 413 ms Sinus bradycardia Anterolateral infarct (cited on or before 14-MAR-2021) Abnormal ECG When compared with ECG of 14-MAR-2021 05:21, (unconfirmed) Questionable change in initial forces of Lateral leads Non-specific change in ST segment in Anterior leads T wave inversion no longer evident in Anterior leads Confirmed by Louie Fam ([id number]) on 03/14/2021 10:45:53 AM Referred By: REFERRED SELF Confirmed By:Louie Fam
--- NOTE | 2021-03-14 14:37 | Hospitalist Progress Note ---
Date of Service March 14, 2021 Assessment & Plan (1) COVID-19 virus infection: Plan: ASSESSMENT AND PLAN: This is a 61-year-old female who presents with nausea/vomiting and diarrhea and electrolyte abnormalities and COVID. 1. Acute hypoxic respiratory failure, COVID-19 pneumonia remains on 4 L of oxygen by nasal cannula CT chest angio: No PE Continue dexamethasone, remdesivir day #3 Renal and liver function stable Continue self proning, incentive spirometry, flutter valve Mucinex Lovenox for DVT prophylaxis With nausea, vomiting and diarrhea, causing electrolyte abnormalities -- K and Mg Normal -- Ca replacement per below --Replete potassium, calcium, magnesium 2. Hypoparathyroidism s/p Thyroid surgery -- PTH low --Calcium being repleted -- on Oscal TID IV Ca intermittently --Repeat calcium 1600 Voice Instructor consulted, appreciate recommendations #3. Sinus bradycardia No hypotension Asymptomatic Metoprolol discontinued Lisinopril started Monitor closely 3. Morbid obesity: Needs counseling. 4. Sleep apnea: CPAP at bedtime with oxygen supplementation. 5. Hypertension: -- hold Metoprolol due to bradycardia -- Lisinopril 10mg po daily started monitor BP and HR 6.SVT -- on admission, patient noted to have SVT, resolved -- 03/13-: (+) sinus bradycardia correct Ca and other electrolytes monitor closely 7. History of papillary thyroid cancer: Status post thyroidectomy. 8. History of coronary artery disease: Status post angioplasty and beta zac. Currently not on aspirin. Not On statin. 8. Deep venous thrombosis prophylaxis: Will place on Lovenox. plan of care discussed with patient in detail and at length all questions answered she is understanding, agreeable, comfortable with the plan of care Admission and Anticipated Discharge Date Admission Date: March 12, 2021 Subjective Follow-up for acute hypoxic respiratory failure, COVID-19 pneumonia, etc. Was noted to be bradycardic in sinus bradycardia overnight Asymptomatic No hypotension noted Seen sitting up in bed on 4 L of oxygen via nasal cannula, watching TV, comfortable In good spirits States she feels improved today Breathing is improving No chest pain, dizziness, presyncope/syncope, abdominal pain, nausea vomiting, leg pain Appetite is good No other symptoms Review of Systems Review of Systems: all noted and negative except for above Physical Exam Physical Exam: General- oriented x 3, not in distress, speaks in sentences with no effort or accessory muscle use Eyes- anicteric Neck- no JVD Lungs-mild rales bilateral bases, no wheezing Good air entry bilaterally Heart-heart rate in the 50s, regular rhythm; no murmurs Abdomen- normal bowel sounds, nondistended, soft, nontender Extremities- no pretibial edema, no calf tenderness Neuro- alert, oriented x 3; no gross focal neurologic deficits Skin- warm & dry Results & Data Results & Data ([facility]) Vital Signs (Past 12 Hours) Vital Signs Temp Pulse Pulse Resp BP Pulse Ox Pulse Ox 03/14/21 12:25 37.0 C 46 L 24 161/86 H 96 03/14/21 08:00 62 03/14/21 07:53 36.6 C 42 L 17 167/71 H 90 03/14/21 04:32 39 L 15 145/81 H 94 03/14/21 04:00 94 03/14/21 03:04 36.6 C 46 L 22 152/74 H 92 all noted and reviewed including below
[2021-03-14] MEDS ORDERED: lisinopril 10 MG TAB PO STA (16:03)
[2021-03-14 16:32] LABS: Magnesium 1.7 mg/dl (1.8-2.4); Troponin I < 0.015 ng/ml (0-0.045)
[2021-03-14] MEDS: MAGNESIUM SULFATE / D5W 1 GM/100 ML BAG IV SCH ×2 (17:50→20:39)
[2021-03-14] MEDS: REMDESIVIR 100 MG in SODIUM CHLORIDE 0.9% 230 ML IV SCH (20:39)
[2021-03-14] MEDS: SODIUM CHLORIDE 0.9% 10ML FLUSH IV SCH (20:39)
[2021-03-15 06:26] LABS: Basophils # (auto) 0.01 K/uL (0-0.2); Basophils % (auto) 0.1 %; Hematocrit (blood only) 38.6 % (37-47); Hemoglobin 12.7 g/dL (12.0-16.0); Immature Granulocytes # (auto) 0.13 K/uL (0.00-0.02); Immature Granulocytes % (auto) 1.4 %; Lymphocytes # (auto) 1.02 K/uL (1.2-3.4); Lymphocytes % (auto) 11.2 %; Mean Corpuscular Hemoglobin 29.9 pg (25-34); Mean Corpuscular Hgb Conc 32.9 g/dL (32-36); Mean Corpuscular Volume 90.8 fL (80-100); Mean Platelet Volume 11.5 fL (7.4-10.4); Monocytes # (auto) 0.85 K/uL (0.11-0.59); Monocytes % (auto) 9.3 %; Neutrophils # (auto) 7.11 K/uL (1.4-6.5); Platelet Count 277 K/uL (130-400); RDW Coefficient of Variation 13.7 % (11.5-14.5); RDW Standard Deviation 45.8 fL (36.4-46.3); Red Blood Count 4.25 M/uL (4.2-5.4); White Blood Count 9.12 K/uL (4.8-10.8)
[2021-03-15] MEDS: LEVOTHYROXINE SODIUM 200 MCG TABLET PO SCH (06:26)
[2021-03-15 06:51] LABS: Albumin Level 2.8 gm/dl (3.4-5.0); BUN Creatinine Ratio 33.9 (10-20); Calcium 8.1 mg/dl (8.5-10.1); Creatinine Clr Calc Pharmacy 88.2 ml/min; Est GFR (African American) 82.2 ml/min; Est GFR (Non-African American) 70.9 ml/min; Potassium 3.7 mmol/L (3.5-5.1)
[2021-03-15 06:54] LABS: Albumin Globulin Ratio 0.7 (0.9-2); Bilirubin,Total 0.8 mg/dl (0.2-1); Globulin 4.1 gm/dl (2.5-4.0); Phosphorus 5.6 mg/dl (2.5-4.9); Total Protein 6.9 gm/dl (6.4-8.2)
[2021-03-15] MEDS ORDERED: POTASSIUM CHLORIDE CRTAB 20 MEQ TABCR PO STA (07:58)
[2021-03-15] MEDS: guaiFENesin 600 MG TABCR PO SCH ×2 (08:36→21:10)
[2021-03-15] MEDS: FLUTICASONE FUROATE 100MCG 14 PUFFS/INHALER INH SCH (08:36)
[2021-03-15] MEDS: ASCORBIC ACID 500 MG TAB PO SCH (08:36)
[2021-03-15] MEDS: CHOLECALCIFEROL 1,000 UNITS 25 MCG TAB PO SCH (08:36)
[2021-03-15] MEDS: dexAMETHasone 6 MG in SYRINGE 0 ML IV SCH (08:37)
[2021-03-15] MEDS: ENOXAPARIN INJ 40 MG/0.4 ML SYR SQ SCH ×2 (08:37→21:10)
[2021-03-15] MEDS: lisinopril 20 MG TAB PO SCH (09:30)
[2021-03-15] MEDS: CALCIUM CARBONATE 1250MG TAB PO SCH ×3 (10:22→21:10)
[2021-03-15] MEDS: hydrALAZINE HCL 20 MG/ML VIAL IV PRN (12:26)
[2021-03-15] MEDS ORDERED: LORazepam 0.5 MG TAB PO STA (13:20)
[2021-03-15] MEDS ORDERED: amLODIPine BESYLATE 5 MG TAB PO ONE (13:30)
--- NOTE | 2021-03-15 14:06 | Hospitalist Progress Note ---
Date of Service March 15, 2021 Assessment & Plan (1) COVID-19 virus infection: Plan: ASSESSMENT AND PLAN: This is a 61-year-old female who presents with nausea/vomiting and diarrhea and electrolyte abnormalities and COVID. 1. Acute hypoxic respiratory failure, COVID-19 pneumonia remains on 4 L of oxygen by nasal cannula--> o2 sats seems to be improving CT chest angio: No PE Continue dexamethasone, remdesivir day #4 Renal and liver function stable Continue self proning, incentive spirometry, flutter valve Mucinex Lovenox for DVT prophylaxis With nausea, vomiting and diarrhea, causing electrolyte abnormalities -- K and Mg Normal -- Ca replacement per below --Replete potassium, calcium, magnesium accordingly 2. Hypoparathyroidism s/p Thyroid surgery -- PTH low --Calcium being repleted -- ionized ca 1.0 -- on Oscal TID IV Ca intermittently --Repeat calcium 1600 Watermaster consulted, appreciate recommendations 3. Sinus bradycardia SVT on admission sinus radha on hospital day 2 non sustained V tach overnight continue Ca repletion will order Cardiology consult No hypotension Asymptomatic Metoprolol discontinued Lisinopril started BP still elevated Amlodipine 5mg started monitor closely 3. Morbid obesity: Needs counseling. 4. Sleep apnea: CPAP at bedtime with oxygen supplementation. 5. Hypertension: -- hold Metoprolol due to bradycardia -- Lisinopril 10mg po daily started Amlodipine 5mg po daily added today -- monitor closely 6.SVT -- on admission, patient noted to have SVT, resolved -- 03/13-: (+) sinus bradycardia correct Ca and other electrolytes monitor closely - 03/15 non sustained V tach management per above 7. History of papillary thyroid cancer: Status post thyroidectomy. 8. History of coronary artery disease: Status post angioplasty and beta blocke r. Currently not on aspirin. Not On statin. 8. Deep venous thrombosis prophylaxis: Will place on Lovenox. plan of care discussed with patient in detail and at length all questions answered she is understanding, agreeable, comfortable with the plan of care Admission and Anticipated Discharge Date Admission Date: March 12, 2021 Subjective ff up for acute hypoxic respiratory failure, COVID 19 pneumonia, etc seen resting in bed, sitting up, on 4 L o2 via NC, satting 97% patient comfortable, in good spirits states she feels improved daily breathing is easier less cough no chest pain, dyspnea, palpitations, dizziness no presyncope/syncope had an episode of non sustained v tach last night no other symptoms Review of Systems Review of Systems: all noted and negative except for above Physical Exam Physical Exam: General- oriented x 3, not in distress, speaks in sentences with no effort or accessory muscle use Eyes- anicteric Neck- no JVD Lungs- mild diminished BS, mild rales at the bases, no wheezing Heart- mild bradycardia- heart 52, regular rhythm; no murmurs Abdomen- normal bowel sounds, nondistended, soft, nontender Extremities- no pretibial edema, no calf tenderness Neuro- alert, oriented x 3; no gross focal neurologic deficits Skin- warm & dry Results & Data Results & Data ([facility]) Vital Signs (Past 12 Hours) Vital Signs Temp Pulse Resp BP BP Pulse Ox Pulse Ox 03/15/21 13:03 67 170/75 H 03/15/21 13:01 65 182/90 H 03/15/21 11:54 36.8 C 50 L 20 178/80 H 92 03/15/21 07:29 36.8 C 61 18 162/95 H 95 03/15/21 04:08 36.7 C 54 L 18 169/89 H 97 03/15/21 04:00 95 all noted and reviewed including below
[2021-03-15] MEDS: REMDESIVIR 100 MG in SODIUM CHLORIDE 0.9% 230 ML IV SCH (21:09)
[2021-03-15] MEDS: SODIUM CHLORIDE 0.9% 10ML FLUSH IV SCH (21:10)
[2021-03-16] MEDS: LEVOTHYROXINE SODIUM 200 MCG TABLET PO SCH (05:41)
[2021-03-16] MEDS: ACETAMINOPHEN 325 MG TAB PO PRN (06:57)
[2021-03-16 07:19] LABS: Albumin Level 2.9 gm/dl (3.4-5.0); BUN Creatinine Ratio 27.2 (10-20); Calcium 8.4 mg/dl (8.5-10.1); Creatinine Clr Calc Pharmacy 91.3 ml/min; Potassium 3.6 mmol/L (3.5-5.1)
[2021-03-16 07:21] LABS: Albumin Globulin Ratio 0.7 (0.9-2); Bilirubin,Total 0.8 mg/dl (0.2-1); Globulin 4.1 gm/dl (2.5-4.0); Phosphorus 5.3 mg/dl (2.5-4.9)
[2021-03-16] MEDS: lisinopril 20 MG TAB PO SCH (08:25)
[2021-03-16] MEDS: ENOXAPARIN INJ 40 MG/0.4 ML SYR SQ SCH ×2 (08:26→21:17)
[2021-03-16] MEDS: dexAMETHasone 6 MG in SYRINGE 0 ML IV SCH (08:26)
[2021-03-16] MEDS: guaiFENesin 600 MG TABCR PO SCH ×2 (08:27→21:18)
[2021-03-16] MEDS: CHOLECALCIFEROL 1,000 UNITS 25 MCG TAB PO SCH (08:28)
[2021-03-16] MEDS: ASCORBIC ACID 500 MG TAB PO SCH (08:29)
[2021-03-16] MEDS: FLUTICASONE FUROATE 100MCG 14 PUFFS/INHALER INH SCH (08:30)
--- NOTE | 2021-03-16 09:01 | Nephrology Progress Note ---
Date of Service March 16, 2021 Assessment & Plan Admission and Anticipated Discharge Date Admission Date: March 12, 2021 Subjective Subjective S---No new issues. Ca++ stil low despite high dose supplement. PHYSICAL EXAMINATION: GENERAL: A middle-aged white female who is somewhat obese. She is in slight respiratory distress. HEENT: Mucous membranes are moist. NECK: Supple. No jugular venous distention. CHEST: Bilateral somewhat diminished breath sounds with occasional rhonchi. CARDIOVASCULAR: S1 and S2, regular. ABDOMEN: Soft, nontender, obese. EXTREMITIES: Show no edema. NEUROLOGIC: She is awake, alert and oriented. No focal deficit noted. Normal speech. Moving all 4 extremities. LABORATORY TEST: Ionized ca++ still low at 0.87. PTH is very low ASSESSMENT AND PLAN: A 61-year-old female admitted with four days symptoms consistent with GI manifestation of COVID infection as well as COVID-19 pneumonia, now associated with severe electrolyte imbalance, especially hypocalcemia. Electrolyte disorder.She has severe hypocalcemia and was low enough to cause neurological symptoms with numbness of fingers. PTH is very low in the setting of Very low Ca++. given her h/o Severe Hypocalcemia after the thyroid surgery I believe the Dx is Hypoparathyroidism almost certainly from Inadvertent removal removal of parathyroid Gland during the thyroid surgery. Also high Phos is consistent with this Condition. Continue iv ca++ supplement. raise it to 1875 mg tid. vit D 1000 units daily. Daily labs. Results & Data ([facility]) Vital Signs (Past 12 Hours) Vital Signs Temp Pulse Resp BP BP Pulse Ox Pulse Ox 03/16/21 07:42 36.5 C 55 L 19 174/72 H 92 03/16/21 04:00 95 03/16/21 03:27 36.5 C 67 20 156/88 H 95 03/15/21 22:54 36.8 C 77 17 169/76 H 96
--- NOTE | 2021-03-16 09:37 | Cardiology Consultation ---
Date of Consultation March 16, 2021 Assessment & Plan (1) COVID-19 virus infection: (2) Vomiting: (3) Diarrhea: (4) Hypomagnesemia: (5) Hypocalcemia: (6) Fever: (7) Hypoparathyroidism after surgical removal of thyroid gland: (8) SVT (supraventricular tachycardia): (9) NSVT (nonsustained ventricular tachycardia): 61-year-old unvaccinated female admitted with COVID-19 related pneumonia and severe electrolyte abnormalities secondary to postsurgical hypoparathyroidism. Has had episodes of tachycardia including SVT and nonsustained ventricular tachycardia but otherwise bradycardic at baseline. Given baseline bradycardia would hold off on any AV elicia blocking agents at this time. Recommend continue to treat underlying hypoxia and electrolyte abnormalities. History of Present Illness Reason for Consultation: SVT and nonsustained VT Requesting Physician: Dr. Mukherjee Attending Physician: Oli Mukherjee MD History of Present Illness 61 yo unvaccinated F presented to [facility] with Covid 19 associated pneumonia on 03/12/2021.She has been started on Covid treatment including dexamethasone and remdesivir along with supplemental O2. She was also found to have significant electrolyte abnormalities and diagnosed as hypoparathyroid status post thyroid surgery. On initial presentation she had episodes of SVT but is bradycardic at baseline. Also had nonsustained VT overnight. Allergies Allergy/AdvReac Type Severity Reaction Status Date / Time No Known Allergies Allergy Verified 03/12/21 10:33 Home Medications Medication Instructions Recorded Confirmed Type ascorbic acid (vitamin C) 500 mg 500 mg PO DAILY 03/12/21 03/12/21 History tablet (Vitamin C) levothyroxine 200 mcg tablet 200 mcg PO DAILY 03/12/21 03/12/21 History (Synthroid) metoprolol tartrate 50 mg tablet 50 mg PO BID 03/12/21 03/12/21 History zinc sulfate 1 mg/mL intravenous 0 mg IV DAILY 03/12/21 03/12/21 History solution Patient History Medical History Chest wall pain History of heart attack Hypertension Non-cardiac chest pain Precordial chest pain Sleep apnea Social History Smoking Status: Former smoker Hx Alcohol Use: Yes Alcohol type: wine Hx Substance Use: No Preferred Language: Portuguese Communication Ability: Effective Imaging Analyst Required: Yes Beliefs That Will Affect Care: None Current Living Situation: Spouse Other Information That Helps Us Care for You: No Feels Safe at Home: Yes Safety Concerns: Feels Safe At This Time Assistive Devices: Oxygen - Continuous Results & Data ([facility]) Vital Signs (Past 12 Hours) Vital Signs Temp Pulse Resp BP BP Pulse Ox Pulse Ox 03/16/21 07:42 36.5 C 55 L 19 174/72 H 92 03/16/21 04:00 95 03/16/21 03:27 36.5 C 67 20 156/88 H 95 03/15/21 22:54 36.8 C 77 17 169/76 H 96 (1) Vomiting Nausea presence: with nausea Vomiting type: unspecified Qualified Code(s): R11.2 - Nausea with vomiting, unspecified (2) Diarrhea Diarrhea type: unspecified type Qualified Code(s): R19.7 - Diarrhea, unspecified (3) Fever Fever type: unspecified Qualified Code(s): R50.9 - Fever, unspecified
[2021-03-16] MEDS: CALCIUM CARBONATE 1250MG TAB PO SCH ×3 (11:54→21:17)
--- NOTE | 2021-03-16 16:50 | Hospitalist Progress Note ---
Date of Service March 16, 2021 delayed entry date of service noted above Assessment & Plan (1) COVID-19 virus infection: Plan: ASSESSMENT AND PLAN: This is a 61-year-old female who presents with nausea/vomiting and diarrhea and electrolyte abnormalities and COVID. 1. Acute hypoxic respiratory failure, COVID-19 pneumonia now on 2L of oxygen by nasal cannula CT chest angio: No PE Continue dexamethasone, remdesivir day #5 Renal and liver function stable Continue self proning, incentive spirometry, flutter valve Mucinex Lovenox for DVT prophylaxis With nausea, vomiting and diarrhea, causing electrolyte abnormalities -- K and Mg Normal -- Ca replacement per below --Replete potassium, calcium, magnesium accordingly 2. Hypoparathyroidism s/p Thyroid surgery -- PTH low --Calcium being repleted -- ionized ca 1.0 -- on Oscal TID IV Ca intermittently Shower Room Attendant consulted, appreciate recommendations 3. Sinus bradycardia SVT on admission sinus radha on hospital day 2 non sustained V tach overnight continue Ca repletion Cardiology consulted- no other intervention for now No hypotension Asymptomatic Metoprolol discontinued Lisinopril started BP still elevated Amlodipine 5mg started monitor BP 3. Morbid obesity: Needs counseling. 4. Sleep apnea: CPAP at bedtime with oxygen supplementation. 5. Hypertension: -- hold Metoprolol due to bradycardia -- Lisinopril 10mg po daily Amlodipine 5mg po daily -- monitor BP 6.SVT -- on admission, patient noted to have SVT, resolved -- 03/13-25: (+) sinus bradycardia correct Ca and other electrolytes monitor closely - 03/15 non sustained V tach management per above 7. History of papillary thyroid cancer: Status post thyroidectomy. 8. History of coronary artery disease: Status post angioplasty and beta zac. Currently not on aspirin. Not On statin. 8. Deep venous thrombosis prophylaxis: Will place on Lovenox. plan of care discussed with patient in detail and at length all questions answered she is understanding, agreeable, comfortable with the plan of care Admission and Anticipated Discharge Date Admission Date: March 12, 2021 Subjective ff up for acute hypoxic respiratory failure, COVID 19 pneumonia, etc seen resting in bed, comfortable on 2 L NC states she feels much better overall breathing is improving, cough also less no chest pain, dyspnea, palpitations, dizziness no other symptoms Review of Systems Review of Systems: all noted and negative except for above Physical Exam Physical Exam: General- oriented x 3, not in distress, speaks in sentences with no effort or accessory muscle use Eyes- anicteric Neck- no JVD Lungs- mild rales on the left, clear on the right no wheezing Heart- normal rate, regular rhythm; no murmurs Abdomen- normal bowel sounds, nondistended, soft, nontender Extremities- no pretibial edema, no calf tenderness Neuro- alert, oriented x 3; no gross focal neurologic deficits Skin- warm & dry Results & Data Results & Data ([facility]) Vital Signs (Past 12 Hours) Vital Signs Temp Pulse Resp BP BP Pulse Ox 03/16/21 15:26 36.5 C 65 18 159/83 H 92 03/16/21 10:57 36.6 C 57 L 19 163/78 H 91 03/16/21 10:49 56 L 163/95 H 03/16/21 07:42 36.5 C 55 L 19 174/72 H 92 all noted and reviewed including below
[2021-03-16] MEDS ORDERED: amLODIPine BESYLATE 5 MG TAB PO ONE (17:15)
[2021-03-16] MEDS: hydrALAZINE HCL 20 MG/ML VIAL IV PRN (21:17)
[2021-03-17] MEDS: hydrALAZINE HCL 20 MG/ML VIAL IV PRN ×2 (03:37→10:36)
[2021-03-17] MEDS: LEVOTHYROXINE SODIUM 200 MCG TABLET PO SCH (05:58)
[2021-03-17] MEDS: LORazepam 0.5 MG TAB PO PRN (06:04)
[2021-03-17] MEDS ORDERED: FLUTICASONE PROPIONATE NA SPR 16 GM BTL PRN (06:28)
[2021-03-17] MEDS: lisinopril 20 MG TAB PO SCH (06:31)
[2021-03-17 07:11] LABS: BUN Creatinine Ratio 27.9 (10-20); Calcium 9.2 mg/dl (8.5-10.1); Creatinine Clr Calc Pharmacy 98.2 ml/min; Est GFR (African American) 95.2 ml/min; Est GFR (Non-African American) 82.2 ml/min; Potassium 3.3 mmol/L (3.5-5.1)
[2021-03-17 07:14] LABS: Albumin Globulin Ratio 0.8 (0.9-2); Bilirubin,Total 1.1 mg/dl (0.2-1); Globulin 3.9 gm/dl (2.5-4.0); Phosphorus 5.5 mg/dl (2.5-4.9); Total Protein 6.9 gm/dl (6.4-8.2)
[2021-03-17] MEDS: SODIUM CHLORIDE 0.65% NA SOLN 45 ML (OCEAN) SCH ×2 (08:23→21:00)
[2021-03-17] MEDS: FLUTICASONE FUROATE 100MCG 14 PUFFS/INHALER INH SCH (08:23)
[2021-03-17] MEDS: ENOXAPARIN INJ 40 MG/0.4 ML SYR SQ SCH ×2 (08:23→20:59)
[2021-03-17] MEDS: CALCIUM CARBONATE 1250MG TAB PO SCH ×3 (08:24→20:59)
[2021-03-17] MEDS: dexAMETHasone 6 MG in SYRINGE 0 ML IV SCH (08:24)
[2021-03-17] MEDS: ASCORBIC ACID 500 MG TAB PO SCH (08:26)
[2021-03-17] MEDS: CHOLECALCIFEROL 1,000 UNITS 25 MCG TAB PO SCH (08:27)
[2021-03-17] MEDS: guaiFENesin 600 MG TABCR PO SCH ×2 (08:28→20:59)
[2021-03-17] MEDS ORDERED: amLODIPine BESYLATE 5 MG TAB PO SCH (09:00)
--- NOTE | 2021-03-17 09:37 | Nephrology Progress Note ---
Date of Service March 17, 2021 Assessment & Plan Admission and Anticipated Discharge Date Admission Date: March 12, 2021 Subjective Subjective Subjective S---No new issues. Ca++ normal today PHYSICAL EXAMINATION: GENERAL: A middle-aged white female who is somewhat obese. She is in slight respiratory distress. HEENT: Mucous membranes are moist. NECK: Supple. No jugular venous distention. CHEST: Bilateral somewhat diminished breath sounds with occasional rhonchi. CARDIOVASCULAR: S1 and S2, regular. ABDOMEN: Soft, nontender, obese. EXTREMITIES: Show no edema. NEUROLOGIC: She is awake, alert and oriented. No focal deficit noted. Normal speech. Moving all 4 extremities. LABORATORY TEST: Ionized ca++ low . PTH is very low ASSESSMENT AND PLAN: A 61-year-old female admitted with four days symptoms consistent with GI manifestation of COVID infection as well as COVID-19 pneumonia, now associated with severe electrolyte imbalance, especially hypocalcemia. Electrolyte disorder.She has severe hypocalcemia and was low enough to cause neurological symptoms with numbness of fingers. PTH is very low in the setting of Very low Ca++. given her h/o Severe Hypocalcemia after the thyroid surgery I believe the Dx is Hypoparathyroidism almost certainly from Inadvertent removal removal of parathyroid Gland during the thyroid surgery. Also high Phos is consistent with this Condition. Continue 1875 mg tid but will decide about the stable dose tomorrow. vit D 1000 units daily. Daily labs. Results & Data ([facility]) Vital Signs (Past 12 Hours) Vital Signs Temp Pulse Pulse Resp BP Pulse Ox 03/17/21 07:55 37.5 C 74 15 160/92 H 92 03/17/21 06:29 169/82 H 03/17/21 06:12 178/101 H 03/17/21 06:10 36.6 C 03/17/21 04:33 145/71 H 03/17/21 03:36 170/102 H 03/17/21 03:27 36.6 C 53 L 14 174/102 H 91 03/16/21 22:47 36.9 C 69 23 158/78 H 92 03/16/21 22:19 157/78 H 03/16/21 22:15 68
[2021-03-17] MEDS ORDERED: POTASSIUM CHLORIDE CRTAB 20 MEQ TABCR PO STA (10:04)
[2021-03-17] MEDS ORDERED: LORazepam 0.5 MG TAB PO STA (10:10)
[2021-03-17] MEDS ORDERED: LORazepam 0.5 MG TAB PO PRN (10:10)
--- NOTE | 2021-03-17 11:19 | CT Scan Report ---
CT head/brain wo con CLINICAL HISTORY: Headache. Evaluate for possible bleed. COMPARISON STUDY: 12/15/2014 CT DOSE: 638.56 mGycm TECHNIQUE: Standard CT of the Brain was performed without IV contrast. A dose lowering technique was utilized adhering to the principles of ALARA. FINDINGS: Extraaxial space: There is no evidence for subdural hematoma. There are no extra-axial fluid collecti ons. Ventricles and cisterns: The ventricles are normal in size and configuration. There is no evidence f or midline shift or mass effect. Parenchyma: There is no subarachnoid or intraparenchymal hemorrhage. There is no evidence for an acu te infarct or cerebral edema. There is homogeneous attenuation of the brain parenchyma. There are no gross mass lesions. Osseous structures: There is no evidence for an acute fracture. There is mucosal thickening of the ma xillary antra bilaterally. The remaining visualized paranasal sinuses are clear. The mastoid air cell s are clear bilaterally. Soft tissues: There is a sebaceous cyst adjacent to the high left frontal bone. IMPRESSION: No acute intracerebral pathology. Chronic bilateral maxillary sinusitis. Sebaceous cyst. ACT 112: Negative or not required by law. Electronically signed by: Pedro Luis Coleman M.D. 03/17/2021 11:17 AM
[2021-03-17] MEDS ORDERED: amLODIPine BESYLATE 5 MG TAB PO ONE ×2 (11:47→13:00)
[2021-03-17] MEDS ORDERED: lisinopril 20 MG TAB PO ONE (17:00)
--- NOTE | 2021-03-17 21:27 | Hospitalist Progress Note ---
Date of Service March 17, 2021 Assessment & Plan (1) COVID-19 virus infection: Plan: (1) COVID-19 virus infection: Plan: ASSESSMENT AND PLAN: This is a 61-year-old female who presents with nausea/vomiting and diarrhea and electrolyte abnormalities and COVID. 1. Acute hypoxic respiratory failure, COVID-19 pneumonia weaned off oxygen from 4 L nasal cannula--> now room air CT chest angio: No PE on dexamethasone Day # 6 completed remdesivir day 5 Renal and liver function stable self proning, incentive spirometry, flutter valve, Mucinex Lovenox for DVT prophylaxis -- possible d/c tomorrow 2 step exercise test needed likely d/c Decadron as patient having flushing, high BP anxiety With nausea, vomiting and diarrhea, causing electrolyte abnormalities -- K and Mg Normal -- Ca replacement per below 2. Hypoparathyroidism s/p Thyroid surgery -- Nephro consulted -- PTH low --Calcium being repleted -- ionized ca 1.0 -- on Oscal TID IV Ca intermittently - will need Oscal on d/c 3. Sinus bradycardia SVT on admission sinus radha on hospital day 2 non sustained V tach overnight continue Ca repletion will order Cardiology consult No hypotension Asymptomatic Metoprolol discontinued will need Lisinopril 40mg daily and Amlodipine 10 mg on discharge 3. Morbid obesity: Needs counseling. 4. Sleep apnea: CPAP at bedtime with oxygen supplementation. 5. Hypertension: as per above 6.SVT -- as per above 7. History of papillary thyroid cancer: Status post thyroidectomy. 8. History of coronary artery disease: Status post angioplasty -- Currently not on aspirin. Not On statin. -- will need to be at least on baby ASA 8. Deep venous thrombosis prophylaxis: Lovenox. Disposition anticipate d/c home 03/18 needs 2 step exercise test plan of care discussed with patient in detail and at length all questions answered she is understanding, agreeable, comfortable with the plan of care Admission and Anticipated Discharge Date Admission Date: March 12, 2021 Subjective ff up for acute hypoxic respiratory failure, covid 19 pneumonia, etc seen resting in bed, comfortable on room air in good spirits states she feels improved overall breathing is better less cough no chest pain, leg pain was flushed this morning, had some posterior headache, somewhat anxious- resolved no other symptoms Review of Systems Review of Systems: all noted and negative except for above Physical Exam Physical Exam: General- oriented x 3, not in distress, speaks in sentences with no effort or accessory muscle use Eyes- anicteric Neck- no JVD Lungs- faint rales at the bases, no wheezing Heart- normal rate, regular rhythm; no murmurs Abdomen- normal bowel sounds, nondistended, soft, nontender Extremities- no pretibial edema, no calf tenderness Neuro- alert, oriented x 3; no gross focal neurologic deficits Skin- warm & dry Results & Data Results & Data ([facility]) Vital Signs (Past 12 Hours) Vital Signs Temp Pulse Resp BP BP Pulse Ox 03/17/21 20:57 159/92 H 03/17/21 19:10 36.9 C 83 16 163/82 H 93 03/17/21 16:09 36.6 C 82 20 152/95 H 91 03/17/21 12:03 36.8 C 82 20 142/91 H 92 03/17/21 10:34 177/103 H all noted and reviewed including below
[2021-03-18] MEDS: LEVOTHYROXINE SODIUM 200 MCG TABLET PO SCH (05:44)
[2021-03-18 07:41] LABS: Hematocrit (blood only) 43.4 % (37-47); Hemoglobin 14.3 g/dL (12.0-16.0); Mean Corpuscular Hemoglobin 29.4 pg (25-34); Mean Corpuscular Hgb Conc 32.9 g/dL (32-36); Mean Corpuscular Volume 89.3 fL (80-100); Mean Platelet Volume 10.6 fL (7.4-10.4); Platelet Count 435 K/uL (130-400); RDW Coefficient of Variation 13.5 % (11.5-14.5); RDW Standard Deviation 44.2 fL (36.4-46.3); Red Blood Count 4.86 M/uL (4.2-5.4); White Blood Count 17.42 K/uL (4.8-10.8)
[2021-03-18 08:03] LABS: Creatinine Clr Calc Pharmacy 77.5 ml/min; Est GFR (African American) 71.2 ml/min; Est GFR (Non-African American) 61.4 ml/min; Phosphorus 5.8 mg/dl (2.5-4.9)
[2021-03-18] MEDS: SODIUM CHLORIDE 0.65% NA SOLN 45 ML (OCEAN) SCH (08:39)
[2021-03-18] MEDS: CALCIUM CARBONATE 1250MG TAB PO SCH ×2 (08:42→13:22)
[2021-03-18] MEDS: ASCORBIC ACID 500 MG TAB PO SCH (08:42)
[2021-03-18] MEDS: CHOLECALCIFEROL 1,000 UNITS 25 MCG TAB PO SCH (08:43)
[2021-03-18] MEDS: FLUTICASONE FUROATE 100MCG 14 PUFFS/INHALER INH SCH (08:44)
[2021-03-18] MEDS: ENOXAPARIN INJ 40 MG/0.4 ML SYR SQ SCH (08:44)
[2021-03-18] MEDS: guaiFENesin 600 MG TABCR PO SCH (08:44)
[2021-03-18] MEDS ORDERED: lisinopril 40 MG TAB PO SCH (09:00)
[2021-03-18] MEDS ORDERED: amLODIPine BESYLATE 5 MG TAB PO SCH (09:00)
--- NOTE | 2021-03-18 16:56 | Discharge Summary ---
Date of Service March 18, 2021 Admission HPI Per Admitting Provider CHIEF COMPLAINT: Dehydration. HISTORY OF PRESENT ILLNESS: This is a 61-year-old female with past medical history significant for hypothyroidism, allergic rhinitis, sleep apnea, hypertension, GERD, duodenitis, morbid obesity, allergic conjunctivitis, history of papillary thyroid cancer, status post thyroidectomy, history of coronary artery disease, status post angioplasty. Presents with nausea, vomiting and diar huber. The patient says her symptoms started about 3 days ago. She developed nausea, vomiting and diarrhea and also feeling weak and tired and she was quaranting at home, but today she felt numbness in the fingers. She had episodes of low calcium in the past because of her thyroid surgery, so she came to the ER and found to be COVID positive and also spiking temperature and her potassium is 3.4, calcium 5.5, and magnesium 1.6. CT of the abdomen and pelvis preliminary report, she has multifocal pneumonia, otherwise left kidney has increased in size. Received fluids and pain medication and currently feeling better. Denies any headache, no dizziness, no blurred visions, no runny nose. Has some mild sore throat, no cough, no chest pain, no shortness of breath. Abdominal pain is better now. Normal bladder movements. No swelling in the legs. Lives at home with her . Not COVID vaccinated.- Admission Exam Per Admitting Provider GENERAL: The patient is morbidly obese, currently not in acute distress. VITAL SIGNS: Temperature 39.1, pulse 82, respiratory rate 18, blood pressure 145/79, oxygen 94% on 4 liters. HEENT: Pupils equal, round and reactive to light. Oral mucosa dry. NECK: No JVD. No neck masses. CARDIOVASCULAR: S1 and S2 heard. Regular rate and rhythm. No murmur, no gallop. RESPIRATORY SYSTEM: Normal AP diameter. No accessory muscle use. No wheezing, no crackles. ABDOMEN: Soft, bowel sounds present, nontender, no distention. CENTRAL NERVOUS SYSTEM: Cranial nerves II through XII are grossly intact, nonfocal. EXTREMITIES: No edema, no erythema. There is a lot of help from this particular hospitalist. Patient's monitor Principal Diagnosis COVID-19 virus infection: Acute hypoxic respiratory failure, COVID-19 pneumonia Hypoparathyroidism Sinus bradycardia Morbid obesity Sleep apnea Hypertension: History of papillary thyroid cancer: History of coronary artery disease: Discharge Exam General- oriented x 3, not in distress, speaks in sentences with no effort or accessory muscle use Eyes- anicteric Neck- no JVD Lungs- faint rales at the bases, no wheezing Heart- normal rate, regular rhythm; no murmurs Abdomen- normal bowel sounds, nondistended, soft, nontender Extremities- no pretibial edema, no calf tenderness Neuro- alert, oriented x 3; no gross focal neurologic deficits Skin- warm & dry Discharge Data Allergies Allergy/AdvReac Type Severity Reaction Status Date / Time No Known Allergies Allergy Verified 03/12/21 10:33 Consultations 03/12/21 05:27 ED Decision to Admit Stat 03/12/21 09:19 Consult Nephrology Routine 03/16/21 09:17 Consult Cardiology Routine Ordered Studies 03/11/21 20:59 CT abd pelvis wo con Urgent 03/12/21 02:57 CT angio chest PE protocol Urgent 03/17/21 10:10 CT head/brain wo con Stat CT head/brain wo con CLINICAL HISTORY: Headache. Evaluate for possible bleed. COMPARISON STUDY: 12/15/2014 CT DOSE: 638.56 mGycm TECHNIQUE: Standard CT of the Brain was performed without IV contrast. A dose lowering technique was utilized adhering to the principles of ALARA. FINDINGS: Extraaxial space: There is no evidence for subdural hematoma. There are no extra-axial fluid collections. Ventricles and cisterns: The ventricles are normal in size and configuration. There is no evidence for midline shift or mass effect. Parenchyma: There is no subarachnoid or intraparenchymal hemorrhage. There is no evidence for an acute infarct or cerebral edema. There is homogeneous attenuation of the brain parenchyma. There are no gross mass lesions. Osseous structures: There is no evidence for an acute fracture. There is mucosal thickening of the maxillary antra bilaterally. The remaining visualized paranasal sinuses are clear. The mastoid air cells are clear bilaterally. Soft tissues: There is a sebaceous cyst adjacent to the high left frontal bone. IMPRESSION: No acute intracerebral pathology. Chronic bilateral maxillary sinusitis. Sebaceous cyst. ACT 112: Negative or not required by law. Electronically signed by: Pedro Luis Coleman M.D. 03/17/2021 11:17 AM Dictated:03/17/21 111 Transcribed: 03/17/[address] angio chest PE protocol CLINICAL HISTORY: Shortness of breath and difficulty breathing. Covid positive. Evaluate for pulmonary embolus COMPARISON STUDY: Portable chest from 03/11/2021 CT DOSE: 1099.50 mGy.cm TECHNIQUE: CT Angio of the chest was performed.followed by image post processing with coronal, and sagittal MIP reformats. Contrast Volume: Optiray 320, 120 ml FINDINGS: Vasculature: There is homogeneous perfusion of the pulmonary vasculature bilaterally. No intraluminal filling defects or evidence for pulmonary embolus is seen. Airway: The airway is clear. No endobronchial lesion is identified. Lungs: Extensive groundglass opacities are present throughout both lungs characteristic of a viral type pneumonitis and Covid 19 pneumonia. The lungs are otherwise clear of confluent alveolar opacities, air bronchograms or pulmonary nodules. Pleura: There is no evidence for pleural effusion. There is no evidence for pneumothorax. Mediastinum: There is no evidence for pathologic adenopathy. There is mild cardiomegaly. The thoracic aorta is within normal limits. There is no evidence for pericardial effusion. Upper abdomen:The adrenal glands are normal bilaterally. There is hepatomegaly with diffuse fatty infiltration of the liver. There is associated splenomegaly. There is also a small sliding-type hiatal hernia. Osseous structures: There is no acute osseous pathology. Impression: 1. No CTA evidence for pulmonary embolus. 2. Extensive groundglass opacities are present throughout both lungs characteristic of a viral type pneumonitis and Covid 19 pneumonia. 3. Hepatomegaly with diffuse fatty infiltration of liver. 4. Splenomegaly. 5. Cardiomegaly. ACT 112: Negative or not required by law. Electronically signed by: Pedro Luis Coleman M.D. 03/12/2021 8:25 AM Dictated:03/12/21820 Transcribed: 03/12/21820 XR chest 1V portable CLINICAL HISTORY: Cough. COMPARISON STUDY: Chest radiograph March 09, 2016. FINDINGS: Exam is compromised by motion artifact. No pneumothorax or pleural effusion is noted. Moderate cardiomegaly is noted. Moderate multifocal airspace opacities within the lungs are present. IMPRESSION: 1. Moderate multifocal airspace opacities within the lungs consistent with viral pneumonia. Radiographic follow-up to ensure resolution is recommended. 2. Cardiomegaly. ACT 112: Negative or not required by law. Electronically signed by: Vikram Thayer M.D. 03/12/2021 7:53 AM Dictated:03/12/21 0751 Transcribed: 03/12/21 0751 Hospital Course (1) COVID-19 virus infection: (1) COVID-19 virus infection: Plan: ASSESSMENT AND PLAN: This is a 61-year-old female who presents with nausea/vomiting and diarrhea and electrolyte abnormalities and COVID. 1. Acute hypoxic respiratory failure, COVID-19 pneumonia weaned off oxygen from 4 L nasal cannula--> now room air CT chest angio: No PE on dexamethasone Day # 6 completed remdesivir day 5 Renal and liver function stable self proning, incentive spirometry, flutter valve, Mucinex Lovenox for DVT prophylaxis likely d/c Decadron as patient having flushing, high BP anxiety 2 step done today showed pt requires 2L nasal canula with ambulation With nausea, vomiting and diarrhea, causing electrolyte abnormalities -- K and Mg Normal -- Ca replacement per below 2. Hypoparathyroidism s/p Thyroid surgery -- Nephro consulted -- PTH low --Calcium being repleted -- ionized ca 1.0 -- on Oscal TID IV Ca intermittently Nephro on board and recommended Oscal TID and VIt D 1000 unit daily Follow up with Nephro in 1 to 2 weeks 3. Sinus bradycardia SVT on admission sinus radha on hospital day 2 non sustained V tach overnight continue Ca repletion will order Cardiology consult No hypotension Asymptomatic Metoprolol discontinued will need Lisinopril 40mg daily and Amlodipine 10 mg on discharge 3. Morbid obesity: Needs counseling. 4. Sleep apnea: CPAP at bedtime with oxygen supplementation. 5. Hypertension: as per above 6.SVT -- as per above 7. History of papillary thyroid cancer: Status post thyroidectomy. 8. History of coronary artery disease: Status post angioplasty -- Currently not on aspirin. Not On statin. -- will need to be at least on baby ASA 8. Deep venous thrombosis prophylaxis: Lovenox. Disposition Will discharge home today Total Time Total Time Spent Total Time Spent (In Minutes): 35 minutes Discharge Plan Discharge Items Patient Disposition: Home - Self-Care Reason For Visit: ILLNESS,DEHYDRATION Discharge Diagnosis: COVID-19 virus infection: Acute hypoxic respiratory failure, COVID-19 pneumonia Hypoparathyroidism Sinus bradycardia Morbid obesity Sleep apnea Hypertension: History of papillary thyroid cancer: History of coronary artery disease: Activity: Resume your previous activity Non-emergency contact: Primary Care Provider Call non-emergency contact if: you have any medication questions Follow-up/Referrals: Esther Silva MD [Primary Care Provider] - (Date & Time 03/26/2021 10:20 AM Provider Madonna Frausto MD Department General Internal Medicine [facility] ) Diet: Heart Healthy Addtl Attending Provider Instructions: Follow up with your primary care provider Dr. Madonna Frausto on 03/26/2021 at 10:20 AM at General Internal Medicine [facility] Follow up with nephrology Dr. Noyola or his colleagues in 1 to 2 weeks Check BMP within 1 week to monitor your electrolytes Continue 2 Liter Nasal canula with ambulation Continue monitor your blood pressure and bring your blood pressure log at your next follow up appointment with your provider Continue Cpap at night Continue practicing social distance and wearing mask Metoprolol discontinued due to low heart rate Home Isolation COVID-19 Instructions The following information about Home Isolation is from the CDC Website: https://www.cdc.gov/coronavirus/2019-ncov/hcp/fidgtaue-zhthjpi-eqjfrq.html Stay home except to get medical care People who are mildly ill with COVID-19 are able to isolate at home during their illness. You should restrict activities outside your home, except for getting medical care. Do not go to work, school, or public areas. Avoid using public transportation, ride-sharing, or taxis. Separate yourself from other people and animals in your home People: As much as possible, you should stay in a specific room and away from other people in your home. Also, you should use a separate bathroom, if available. Animals: You should restrict contact with pets and other animals while you are sick with COVID-19, just like you would around other people. Although there have not been reports of pets or other animals becoming sick with COVID-19, it is still recommended that people sick with COVID-19 limit contact with animals until more information is known about the virus. When possible, have another member of your household care for your animals while you are sick. If you are sick with COVID-19, avoid contact with your pet, including petting, snuggling, being kissed or licked, and sharing food. If you must care for your pet or be around animals while you are sick, wash your hands before and after you interact with pets and wear a face mask. Call ahead before visiting your doctor If you have a medical appointment, call the healthcare provider and tell them that you have or may have COVID-19. This will help the healthcare providers office take steps to keep other people from getting infected or exposed. Wear a face mask You should wear a face mask when you are around other people (e.g., sharing a room or vehicle) or pets and before you enter a healthcare providers office. If you are not able to wear a face mask (for example, because it causes trouble breathing), then people who live with you should not stay in the same room with you, or they should wear a face mask if they enter your room. Cover your coughs and sneezes Cover your mouth and nose with a tissue when you cough or sneeze. Throw used tissues in a lined trash can. Immediately wash your hands with soap and water for at least 20 seconds or, if soap and water are not available, clean your hands with an alcohol-based hand certified welder that contains at least 60% alcohol. Clean your hands often Wash your hands often with soap and water for at least 20 seconds, especially after blowing your nose, coughing, or sneezing; going to the bathroom; and before eating or preparing food. If soap and water are not readily available, use an alcohol-based hand certified welder with at least 60% alcohol, covering all surfaces of your hands and rubbing them together until they feel dry. Soap and water are the best option if hands are visibly dirty. Avoid touching your eyes, nose, and mouth with unwashed hands. Avoid sharing personal household items You should not share dishes, drinking glasses, cups, eating utensils, towels, or bedding with other people or pets in your home. After using these items, they should be washed thoroughly with soap and water. Clean all high-touch surfaces everyday High touch surfaces include counters, tabletops, doorknobs, bathroom fixtures, toilets, phones, keyboards, tablets, and bedside tables. Also, clean any surfaces that may have blood, stool, or body fluids on them. Use a household cleaning spray or wipe, according to the label instructions. Labels contain instructions for safe and effective use of the cleaning product including precautions you should take when applying the product, such as wearing gloves and making sure you have good ventilation during use of the product. Monitor your symptoms Seek prompt medical attention if your illness is worsening (e.g., difficulty breathing).Beforeseeking care, call your healthcare provider and tell them that you have, or are being evaluated for, COVID-19. Put on a face mask before you enter the facility. These steps will help the healthcare providers office to keep other people in the office or waiting room from getting infected or exposed. Ask your healthcare provider to call the local or state health department. Persons who are placed under active monitoring or facilitated self- monitoring should follow instructions provided by their local health department or occupational health professionals, as appropriate. When working with your local health department check their available hours. If you have a medical emergency and need to call 911, notify the dispatch personnel that you have, or are being evaluated for COVID-19. If possible, put on a face mask before emergency medical services arrive. Discontinuing home isolation Patients with confirmed COVID-19 should remain under home isolation precautions until the risk of secondary transmission to others is thought to be low. The decision to discontinue home isolation precautions should be made on a byke-uq-iwop basis, in consultation with healthcare providers and state and [facility] health departments. Coronavirus disease 2019 (COVID-19) is a virus that causes a respiratory illness. It is caused by a coronavirus called 2019 novel coronavirus (2019- nCoV). There are many types of coronavirus. Coronaviruses are a very common cause of bronchitis. They may sometimes cause lung infection(pneumonia). Symptoms can range from mild to severe respiratory illness. These viruses are also foundin some animals. COVID-19 was first found in people in [facility], in late 2019. In 2020, several cases of COVID-19 have been confirmed in the [place] Public health officials are working to find the source. How the virus spreads is not yet fully known. It may be spread through droplets of fluid that a person coughs or sneezes into the air. It may be spread if you touch a surface with virus on it, such as a handle or object, and then touch your mouth. What are the symptoms of COVID-19? Some people have no symptoms or mild symptoms. Symptoms may appear 2 to 14 days after contact with the virus. Symptoms can include: Fever Coughing Trouble breathing What are possible complications from COVID-19? In many cases, this virus can cause infection (pneumonia) in both lungs. In some cases, this can cause . How is COVID-19 diagnosed? Your healthcare provider will ask about your symptoms. He or she will also ask about your recent travel and contact with sick people. Testing for the virus is only done through the CDC. If yourhealthcare provider thinks you may have COVID- 19, he or she will work with your local health department and the CDC on testing. Follow all instructions from your healthcare provider. COVID-19 is diagnosed by: Nasal and throat swab. A cotton-tipped swab is wiped inside your nose or throat. This is done to check for viruses in your nasal mucus. Sputum culture. A small sample of mucus coughed from your lungs (sputum) is collected if you have a cough. It is checked for the virus. How is COVID-19 treated? There is currently no medicine to treat the virus. Treatment is done to help your body while it fights the virus. This is known as supportive care. Supportive care may include: Pain medicine. These include acetaminophen and ibuprofen. They are used to help ease pain and reduce fever. Bed rest. This helps your body fight the illness. For severe illness, you may need to stay in the hospital. Care during severe illness may include: IV (intravenous) fluids.These are given through a vein to help keep your body hydrated. Oxygen. Supplemental oxygen or ventilation with a breathing machine (ventilator) may be given. This is done to keep enough oxygen in your body. Are you at risk for COVID-19? If youve been to a place where people have been sick with this virus, you are at risk for infection. You are at risk if you: Recently traveled to an affected area Had contact with a sick person who recently traveled to this area Had contact with a person who was diagnosed with COVID-19 How can COVID-19 be prevented? There is no vaccine yet. The best prevention is to not have contact with the virus. The CDC advises that people should not travel to areas where there are COVID-19 outbreaks right now for any reason that is not urgent. To help prevent spreading the infection, wash your hands often, or use an alcohol-basedhand certified welder. If you are in an area with COVID-19: Wash your hands often. Or use an alcohol-based hand certified welder often. Only touch your eyes, nose, or mouth with clean hands. Dont have contact with people who are sick. Follow local instructions about being in public. For example, you may be told to not use public transport for a period of time. Stay away from markets that have live or animals. Wash your hands after touching any animals. Don't touch animals that may be sick. Dont share eating or drinking tools with sick people. Dont kiss someone who is sick. Clean surfaces often with disinfectant. If you were in an area with COVID-19 in the last 14 days: Call your healthcare provider. He or she can talk with local health staff to see what action may be needed. Follow all instructions from your provider. Take your temperature every morning and evening for at least 14 days. This is to check for fever. Keep a record of the readings. Keep watch for symptoms of the virus. Tell your provider right away if you have symptoms. If you were in an area with COVID-19 and have a fever or other symptoms: Dont panic. Keep in mind that other illnesses can cause similar symptoms. Stay away from work, school, and public places. Limit physical contact with family members. Don't kiss anyone or share eating or drinking utensils. Clean surfaces you touch with disinfectant. This is to help prevent the virus from spreading. Call your healthcare provider. Explain that you have been exposed to COVID-19 and have symptoms. Do this before going to any hospital. Wait for instructions. Keep in mind that healthcare staff may wear protective equipment such as masks, gowns, gloves, and eye protection. You may be put in a separate room. This is to prevent the possible virus from spreading. Tell the healthcare staff about recent travel. This includes local travel on public transport. Staff may need to find other people you have been in contact with. Follow all instructions the healthcare staff give you. If you have been diagnosed with COVID-19 Follow all instructions from your healthcare provider. Dont leave your home, except to get medical care. Call your healthcare providers office before going. They can prepare and give you instructions. This will help prevent the virus from spreading. Dont go to work, school, or public areas. Dont use public transport or taxis. Stay away from other people in your home. Have them wear face masks around you. Dont share household items or food. Wear a face mask if you can. This includes at home or in a medical facility. Cover your face with a tissue when you cough or sneeze. Throw the tissue away. Wash your hands. Wash your hands often. Caregivers should: Follow all instructions from healthcare staff. Wear a face mask and protective clothing as advised. Wash hands often. Keep track of the sick persons symptoms. Clean surfaces, fabrics, and laundry thoroughly. Keep other people away from the sick person. When to call your healthcare provider Call your healthcare provider: If youve recently traveled and have symptoms If you have been diagnosed with COVID-19 and your symptoms are worse To learn more To find out more about COVID-19, visit the CDC website at www.cdc.gov/coronavirus/2019-ncov/index.html. 2410-[address] [employer] [place] [address]. All rights reserved. This information is not intended as a substitute for professional medical care. Always follow your healthcare professional's instructions. This information has been adapted from [employer] Pending Studies at Discharge: No Stand-Alone Forms: [facility], Smoking Cessation Medications and DC Order Prescriptions: New amlodipine 10 mg tablet 10 mg PO DAILY Qty: 30 RF: 0 lisinopril [Zestril] 40 mg Tablet 40 mg PO QAM 30 Days Qty: 30 RF: 0 cholecalciferol (vitamin D3) 25 mcg (1,000 unit) Capsule 1,000 unit PO QAM 30 Days Qty: 30 RF: 0 calcium carbonate-vitamin D3 [Os-Kai 500 + D3] 500 mg-15 mcg (600 unit) Tablet 1,875 mg PO TID 30 Days Qty: 338 RF: 0 Continued levothyroxine [Synthroid] 200 mcg tablet 200 mcg PO DAILY RF: 0 zinc sulfate 1 mg/mL Solution 0 mg DAILY RF: 0 ascorbic acid (vitamin C) [Vitamin C] 500 mg Tablet 500 mg PO DAILY RF: 0 Discontinued metoprolol tartrate 50 mg tablet 50 mg PO BID RF: 0 Discharge Orders: Discharge Order (Routine); Ordered 03/18/21 Ordered By: Hitesh Morris/Other Patient Handouts: Vitamin D3 Oral Tablet 1,000 IU, Lisinopril Oral Tablet 10 mg, Taking Amlodipine Admission Data Admit Date/Time: 03/12/21 02:33 Attending Provider: Hitesh Cobian Admit Provider: Michael Pastor Primary Care Provider: Esther Silva Other Providers: Michael Pastor ; Hu Noyola ; Be Raines ; Oli Mukherjee Other Interventions: Discharge Summary Assessment (RN) Last Done: 03/18/21 17:11
== END 2021-03-18 17:59 | disposition home or self-care (01) | DRG 177 ==
LOC: ED 20:40 → EDINP 03-12 02:33 → SUATTDRO 03-12 02:33 → EDINP 03-12 04:30 → 2E 03-13 18:37